=== PATIENT | female | born 1990 | race Caucasian/White ===

== ENCOUNTER 2017-10-02 10:39 | Emergency (ER) | payer MEDICAID ==
--- NOTE | 2017-10-02 11:52 | PD ---
HPI Chief Complaint back pain on L side Date Seen: Oct 02, 2017 Time Seen: 11:45 Travel History International Travel<30 Days: No Contact w/Intl Traveler<30Days: No Known Affected Area: No History of Present Illness HPI 26y/o G1 @ 35.0wks. She has PNC wtih Dr. Tao. She presents to triage with c/o excrutiating L sided back back since 6am. She states that it radiates down to her hip. She denies fever, dysuria, or hematuria. She also reports some increase swelling to her LEs and pressure in the vagina. No LOF, VB, ctx. ++FM. PNC is complicated by anemia (on oral iron supplementation). Weeks Gestation: 35 Para: 0 : 1 Last Menstrual Period: Oct 02, 2017 History Past Medical History Narrative Medical anemia Obstetric History Obstetric History G1. current Past Surgical History Surgical History: No Previous Surgery Family History Family History: Negative Social History Alcohol Use: No Tobacco Use: No Substance Abuse: No Allergies-Medications Comments NKDA Narrative Medication PNV, iron Review of Systems Except as stated in HPI: all other systems reviewed are Neg Physical Exam Narrative General: well developed, well nourished, no acute distress HEENT: normocephalic atraumatic, extraocular movements intact, neck supple Abdomen: soft, gravid, nontender, nondistended Back: +L CVA tenderness Extremities: full range of motion, trace edema Skin: normal coloration, no rashes, no suspicious skin lesions noted Neurologic: cranial nerves 2-12 grossly intact, normal muscle tone, normal gait Psychiatric: normal mood and affect, appropriate FHTs: 145, moderate variability, mild variables, non-reactive [place]: irritable Data Data Vital Signs Reviewed: Yes Orders Orders Vital Signs (Adult) .ON ADMISSION (10/02/17 11:44) ^ Labor Status (10/02/17 11:44) Urinalysis - C+S If Indicated (10/02/17 11:44) ^ Non Stress Test (10/02/17 11:44) ^ Hydration (10/02/17 11:44) MDM Plan 26y/o G1 @ 35.0wks with 1. IUP -- FHTS with moderate variability but non-reactive and +mild variables --> BPP/ REUBEN ordered -- toco with rippling --> IVF bolus 2. flank pain -- diff includes pyelo (unlikely given afebrile), nephrolithiasis, muscle spasm -- UA sent Update: 13:45 time Pts UA was negative for blood, or UTI. MSK tx given with flexiril Rx. BPP was 8/8 with REUBEN 14. Strict precautions/kick counts reviewed. Stable for d/c home. Has f/u PNV with Dr. Tao on 10/14. Diagnosis Diagnosis: Primary Impression: 35 weeks gestation of Additional Impressions: Left flank pain Non-reactive NST (non-stress test) Verito Frank MD Oct 02, 2017 11:52
[2017-10-02 12:21] LABS: BLOOD, URINE NEG (NEG); COMMENT (UR) CULT NOT INDICATED; CULTURE IF INDICATED CULT NOT INDICATED; GLUCOSE,URINE NEG (NEG); KETONE, URINE NEG (NEG); MUCUS URINE FEW /lpf (OCC); NITRITE,URINE NEG (NEG); PH, URINE 6.5 (5.0-8.5); SQUAMOUS EPITHELIAL CELL URINE 1 /hpf (0-5); URINE COLOR YELLOW (YELLW/STRAW)
== END 2017-10-02 14:30 | disposition home or self-care (01) ==
LOC: HOBED 10:39
DX: O26.893 Other specified pregnancy related conditions, third trimester (principal); R10.9 Unspecified abdominal pain; Z3A.35 35 weeks gestation of pregnancy
CPT/HCPCS: 59025; 76816; 76819; 81001; 96360

== ENCOUNTER 2017-10-29 11:42 | Inpatient (IN) | payer MEDICAID ==
[~2017-10-29] VITALS: Ht 152.4 cm; Wt 84.0 kg
[2017-10-29] VITALS (31 sets, daily range): BP systolic 119–157; BP diastolic 61–80; PULSE 73–92; RESP 16–18; TEMP 97.9–98.2; O2SAT 96–100
[2017-10-29] MEDS ORDERED: LACTATED RINGER'S 1000 ML INJ 1,000 ML IV PRN (12:32)
[2017-10-29] MEDS ORDERED: LIDOCAINE HCL 1% 50 ML VIAL I-DERMAL PRN (12:45)
[2017-10-29] MEDS ORDERED: OXYTOCIN 30 UNITS-500ML PREMIX 500 ML IV ONE (12:45)
[2017-10-29] MEDS ORDERED: CITRIC ACID-SODIUM CITRATE LIQ 30 ML UDC PO SCH (12:45)
[2017-10-29] MEDS ORDERED: LIDOCAINE HCL 1% 50 ML VIAL INFIL PRN (12:45)
[2017-10-29] MEDS ORDERED: MINERAL OIL 10 ML VIAL TOPICAL PRN (12:45)
[2017-10-29] MEDS ORDERED: SODIUM CHLORID 0.9% 500 ML INJ 500 ML IV PRN (12:45)
[2017-10-29] MEDS ORDERED: SODIUM CHLOR 0.9% 1000 ML INJ 1,000 ML IV PRN (12:52)
[2017-10-29 12:54] LABS: AUTOMATED NEUTROPHIL # 7.9 TH/MM3 (1.8-7.7); BASOPHIL # 0.1 TH/MM3 (0-0.2); BASOPHIL % 0.5 % (0.0-2.0); EOSINOPHIL # 0.1 TH/MM3 (0-0.4); EOSINOPHIL % 0.7 % (0.0-4.0); HEMATOCRIT 33.4 % (35.0-46.0); HEMOGLOBIN 10.8 GM/DL (11.6-15.3); LYMPH % 19.4 % (9.0-44.0); LYMPHOCYTE # 2.1 TH/MM3 (1.0-4.8); MEAN CELL VOLUME 78.9 FL (80.0-100.0); MEAN CORPUSCULAR HEMOGLOBIN 25.4 PG (27.0-34.0); MEAN CORPUSCULAR HGB CONC 32.2 % (32.0-36.0); MEAN PLATELET VOLUME 11.1 FL (7.0-11.0); MONO % 5.4 % (0.0-8.0); MONOCYTE # 0.6 TH/MM3 (0-0.9); PLATELET COUNT 164 TH/MM3 (150-450); RED BLOOD COUNT 4.24 MIL/MM3 (4.00-5.30); RED CELL DISTRIBUTION WIDTH 20.7 % (11.6-17.2); WHITE BLOOD COUNT 10.6 TH/MM3 (4.0-11.0)
[2017-10-29] MEDS ORDERED: DINOPROSTONE 10 MG VAG INSERT VAGINAL ONE (13:00)
[2017-10-29] MEDS: LACTATED RINGER'S 1000 ML INJ 1,000 ML IV SCH ×2 (13:00→18:10)
--- NOTE | 2017-10-29 13:01 | HHI.HP ---
HPI Chief Complaint pre-eclampsia Travel History International Travel<30 Days: No Contact w/Intl Traveler<30Days: No Known Affected Area: No History of Present Illness HPI pt is a 27 yo G1 with iup at 38w6d who was seen in the office today for routine ob visit. Her BP was noted to be elevated from baseline of 100/60 to 132/80, 2+ proteinuria. On ROS, pt with Headaches, RUQ pain, increased BLE edema. She denies any blurry vision or spotting. On arrival to L&D her BP is 144/79. She endorses good movement; irreg contractions. No VB/LOF. Weeks Gestation: 38 Para: 0 : 1 Last Menstrual Period: Jan 30, 2017 History Past Medical History Narrative Medical pcos and anemia Obstetric History Obstetric History G1 Past Surgical History Surgical History: No Previous Surgery Family History Family History: Negative Social History Alcohol Use: No Tobacco Use: No Substance Abuse: No Allergies-Medications (Allergen,Severity, Reaction): Coded Allergies: No Known Allergies (Unverified , 10/29/17) Review of Systems General / Constitutional: No: Fever, Weight Gain, Chills, Other Eyes: No: Diploplia, Blurred Vision, Visual changes, Pain, Photophobia HENT: Headaches, No: Vertigo, Lightheadedness Cardiovascular: Edema, No: Irregular Rhythm, Chest Pain or Discomfort, Palpitations, Tachycardia, Syncope, Varicosities, Cyanosis Respiratory: No: Cough, Short of Breath, Other Gastrointestinal: Abdominal Pain, No: Nausea, Vomiting, Diarrhea Genitourinary: No: Decreased Urinary Output, Oliguria Musculoskeletal: No: Limited ROM, Weakness, Cramping, Edema, Pain Skin: No Rash, No Itching, No Dryness, No Lumps, No Change in Pigmentation, No Change in Nails, No Alopecia, No Lesions Neurologic: No: Weakness, Dizziness, Syncope, Focal Abnormalities, Coordination Problem, Headache, Slurred Speech, Seizures Psychiatric: No: Depression, Suicidal Ideations, Homicidal Ideation Endocrine: No: Heat Intolerance, Cold Intolerance, Polydipsia, Polyuria, Other Physical Exam Narrative GENERAL: Well-nourished, well-developed patient. SKIN: Warm and dry. HEAD: Normocephalic and atraumatic. EYES: No scleral icterus. No injection or drainage. ENT: No nasal drainage noted. Mucous membranes pink. Airway patent. NECK: Supple, trachea midline. No JVD. CARDIOVASCULAR: Regular rate and rhythm without murmurs, gallops, or rubs. RESPIRATORY: Breath sounds equal bilaterally. No accessory muscle use. ABDOMEN/GI: Abdomen soft, bowel sounds present, no rebound, no guarding. RUQ pain with palpation Gravid to 38 weeks size Fundal Height: [-] GENITOURINARY: External Genitalia: intact and normal in appearance BUS glands: [-] Cervix1/th/-2, mid, soft Presentation:ceph Membranes: [intact Uterine Contractions:irreg FHT's: Category:I EXTREMITIES: No cyanosis. 2+ ble edema BACK: Nontender without obvious deformity. No CVA tenderness. NEUROLOGICAL: Awake and alert. Motor and sensory grossly within normal limits. Five out of 5 muscle strength in all muscle groups. Normal speech. Caprini VTE Risk Assessment Caprini VTE Risk Assessment: No/Low Risk (score <= 1) Caprini Risk Assessment Model Point Value = 1 Point Value = 2 Point Value = 3 Point Value = 5 Age 41-60 Minor surgery BMI > 25 kg/m2 Swollen legs Varicose veins or History of unexplained or recurrent spontaneous Oral contraceptives or hormone replacement Sepsis (< 1 month) Serious lung disease, including pneumonia (< 1 month) Abnormal pulmonary function Acute myocardial infarction Congestive heart failure (< 1 month) History of inflammatory bowel disease Medical patient at bed rest Age 61-74 Arthroscopic surgery Major open surgery (> 45 min) Laparoscopic surgery (> 45 min) Malignancy Confined to bed (> 72 hours) Immobilizing plaster cast Central venous access Age >= 75 History of VTE Family history of VTE Factor V Leiden Prothrombin [id number] Lupus anticoagulant Anticardiolipin antibodies Elevated serum homocysteine Heparin-induced thrombocytopenia Other congenital or acquired thrombophilia Stroke (< 1 month) Elective arthroplasty Hip, pelvis, or leg fracture Acute spinal cord injury (< 1 month) Prophylaxis Regimen Total Risk Factor Score Risk Level Prophylaxis Regimen 0-1 Low Early ambulation 2 Moderate Order ONE of the following: *Sequential Compression Device (SCD) *Heparin 5000 units SQ BID 3-4 Higher Order ONE of the following medications: *Heparin 5000 units SQ TID *Enoxaparin/Lovenox 40 mg SQ daily (WT < 150 kg, CrCl > 30 mL/min) *Enoxaparin/Lovenox 30 mg SQ daily (WT < 150 kg, CrCl > 10-29 mL/min) *Enoxaparin/Lovenox 30 mg SQ BID (WT < 150 kg, CrCl > 30 mL/min) AND/OR *Sequential Compression Device (SCD) 5 or more Highest Order ONE of the following medications: *Heparin 5000 units SQ TID (Preferred with Epidurals) *Enoxaparin/Lovenox 40 mg SQ daily (WT < 150 kg, CrCl > 30 mL/min) *Enoxaparin/Lovenox 30 mg SQ daily (WT < 150 kg, CrCl > 10-29 mL/min) *Enoxaparin/Lovenox 30 mg SQ BID (WT < 150 kg, CrCl > 30 mL/min) AND *Sequential Compression Device (SCD) Data Data Vital Signs Reviewed: Yes Orders Orders Admit To Inpatient (10/29/17 ) Vital Signs (Adult) .Per protocol (10/29/17 12:32) Heart (10/29/17 12:32) Amnioinfusion (10/29/17 12:32) Urinary Catheter Management .ONCE (10/29/17 12:32) Diet Liquid (10/29/17 Lunch) Lactated Ringer's 1000 Ml Inj (Lr 1000 M (10/29/17 12:32) Lactated Ringer's 1000 Ml Inj (Lr 1000 M (10/29/17 12:32) Sodium Chlorid 0.9% 500 Ml Inj (Ns 500 M (10/29/17 12:45) Sodium Chlor 0.9% 1000 Ml Inj (Ns 1000 M (10/29/17 12:52) Lidocaine 1% Inj (50 Ml) (Xylocaine 1% I (10/29/17 12:45) Citric Acid-Sodium Citrate Liq (Bicitra (10/29/17 12:45) Fentanyl Inj (Fentanyl Inj) (10/29/17 12:45) Fentanyl Inj (Fentanyl Inj) (10/29/17 12:45) Complete Blood Count With Diff (10/29/17 12:32) Hold Clot (10/29/17 12:32) Abo/Rh Blood Type (10/29/17 12:32) Urinalysis - C+S If Indicated (10/29/17 12:32) Drug Screen, Random Urine (10/29/17 12:32) Resp Oxygen Non Rebreathe Mask (10/29/17 ) ^ Epidural / Intrathecal Infus (10/29/17 12:32) Oxytocin 30 Units-500ml Premix (Pitocin (10/29/17 12:45) Lidocaine 1% Inj (50 Ml) (Xylocaine 1% I (10/29/17 12:45) Light Mineral Oil (Muri-Lube Oil) (10/29/17 12:45) ^ Labor Induction (10/29/17 12:32) ^ Vaginal Insert (10/29/17 12:32) ^ Vaginal Lavage (10/29/17 12:32) Heart (10/29/17 12:32) Dinoprostone Vag Insert (Cervidil Vag In (10/29/17 12:45) Comprehensive Metabolic Panel (10/29/17 12:32) Uric Acid (10/29/17 12:32) Protein Creat Ratio, Random Ur (10/29/17 12:32) Inpatient Certification (10/29/17 ) Specimen To Be Collected PRN (10/29/17 12:32) Specimen To Be Collected PRN (10/29/17 12:32) Group B Strep: Negative Assessment/Plan Problem List: (1) Pre-eclampsia ICD Codes: O14.90 - Unspecified pre-eclampsia, unspecified trimester Status: Acute Qualifiers: Qualified Codes: O14.93 - Unspecified pre-eclampsia, third trimester (2) Anemia ICD Codes: D64.9 - Anemia, unspecified Status: Chronic Qualifiers: Assessment and Plan 27 yo G1 with iup at 38w6d being admitted for iol for pre-eclampsia 1) IOL- aware can be a prolonged process. If blood work suggestive of severe pre-eclampsia and delivery indicated sooner, may need CD. If BP and labs stable , will start iol with cervidil. PIH labs, P:C ratio, serial BP. Will start magnesium for seizure prophylaxis. 2) Anemia- on iron bid. Last hgb 9.2, plt 146 on 10/10/17 3) GBS negative 4) Treated for influenza last week with tamiflu. 5) Fetus Cephalic, Male, Growth u/s 10/02/17 during ED visit EFW 30%ile Discharge Planning day 2 or 3 Grace Tao MD Oct 29, 2017 13:01
[2017-10-29 13:11] LABS: ALBUMIN 2.5 GM/DL (3.4-5.0); ALT (GPT) 29 U/L (10-53); AST (GOT) 26 U/L (15-37); BICARBONATE 21.7 MEQ/L (21.0-32.0); BLOOD UREA NITROGEN 7 MG/DL (7-18); CALCIUM 8.5 MG/DL (8.5-10.1); CHLORIDE 109 MEQ/L (98-107); CREATININE 0.59 MG/DL (0.50-1.00); GLOMERULAR FILTRATION RATE 122 ML/MIN (>89); GLUCOSE,RANDOM 71 MG/DL (74-106); SODIUM (NA) 140 MEQ/L (136-145)
[2017-10-29 13:14] LABS: ALKALINE PHOSPHATASE 228 U/L (45-117); TOTAL BILIRUBIN ADULT 0.3 MG/DL (0.2-1.0); TOTAL PROTEIN 6.7 GM/DL (6.4-8.2)
[2017-10-29] MEDS ORDERED: MAGNESIUM SULFATE 4 GM PREMIX 100 ML IV ONE (13:15)
[2017-10-29] MEDS ORDERED: CALCIUM GLUCONATE 10% 1 GM/10 ML VIAL IV PUSH PRN (13:15)
[2017-10-29 13:23] LABS: BACTERIA, URINE RARE /hpf; BILIRUBIN, URINE NEG (NEG); BLOOD, URINE TRACE (NEG); GLUCOSE,URINE NEG (NEG); KETONE, URINE NEG (NEG); MUCUS URINE MOD /lpf (OCC); NITRITE,URINE NEG (NEG); SQUAMOUS EPITHELIAL CELL URINE 21 /hpf (0-5); TRANSITIONAL EPI CELLS, URINE <1 /hpf; URINE COLOR YELLOW (YELLW/STRAW); URINE LEUKOCYTE ESTERASE TRACE (NEG)
[2017-10-29] MEDS: MAGNESIUM SULFATE 40 GM PREMIX 1,000 ML IV SCH (14:17)
[2017-10-29] MEDS ORDERED: SODIUM CHLORID 0.9% 500 ML INJ 500 ML IV ONE (18:30)
[2017-10-29 19:04] LABS: BASOPHIL # 0.1 TH/MM3 (0-0.2); BASOPHIL % 0.4 % (0.0-2.0); EOSINOPHIL % 0.2 % (0.0-4.0); HEMATOCRIT 33.2 % (35.0-46.0); HEMOGLOBIN 10.6 GM/DL (11.6-15.3); LYMPHOCYTE # 1.7 TH/MM3 (1.0-4.8); MEAN CELL VOLUME 79.2 FL (80.0-100.0); MEAN CORPUSCULAR HEMOGLOBIN 25.2 PG (27.0-34.0); MEAN CORPUSCULAR HGB CONC 31.8 % (32.0-36.0); MEAN PLATELET VOLUME 11.4 FL (7.0-11.0); MONO % 4.9 % (0.0-8.0); MONOCYTE # 0.8 TH/MM3 (0-0.9); NEUT % 83.5 % (16.0-70.0); PLATELET COUNT 193 TH/MM3 (150-450); RED BLOOD COUNT 4.19 MIL/MM3 (4.00-5.30); WHITE BLOOD COUNT 15.6 TH/MM3 (4.0-11.0)
[2017-10-29 19:26] LABS: BICARBONATE 19.1 MEQ/L (21.0-32.0); CALCIUM 8.2 MG/DL (8.5-10.1); CREATININE 0.66 MG/DL (0.50-1.00); MAGNESIUM 5.7 MG/DL (1.5-2.5)
[2017-10-29] MEDS ORDERED: ONDANSETRON HCL 4 MG/2 ML VIAL ONE (23:59)
[2017-10-30] VITALS (62 sets, daily range): BP systolic 112–159; BP diastolic 44–100; PULSE 69–111; RESP 15–20; TEMP 97.6–98.2; O2SAT 98–100
[2017-10-30] MEDS ORDERED: MISOPROSTOL 25 MCG TAB VAGINAL ONE (01:30)
[2017-10-30] MEDS ORDERED: ONDANSETRON HCL 4 MG/2 ML VIAL IV PUSH PRN (01:30)
[2017-10-30] MEDS ORDERED: LIDOCAINE 2% JELLY 30 ML TUBE TOPICAL PRN (03:30)
[2017-10-30] MEDS ORDERED: LIDOCAINE 2% JELLY 5 ML TUBE TOPICAL PRN (03:30)
[2017-10-30 05:57] LABS: HEMATOCRIT 34.8 % (35.0-46.0); HEMOGLOBIN 10.9 GM/DL (11.6-15.3); MEAN CELL VOLUME 80.5 FL (80.0-100.0); MEAN CORPUSCULAR HEMOGLOBIN 25.3 PG (27.0-34.0); MEAN CORPUSCULAR HGB CONC 31.4 % (32.0-36.0); MEAN PLATELET VOLUME 10.8 FL (7.0-11.0); PLATELET COUNT 201 TH/MM3 (150-450); RED BLOOD COUNT 4.32 MIL/MM3 (4.00-5.30); RED CELL DISTRIBUTION WIDTH 21.2 % (11.6-17.2); WHITE BLOOD COUNT 17.2 TH/MM3 (4.0-11.0)
[2017-10-30 06:23] LABS: ALBUMIN 2.4 GM/DL (3.4-5.0); ALT (GPT) 26 U/L (10-53); AST (GOT) 28 U/L (15-37); BICARBONATE 16.5 MEQ/L (21.0-32.0); BLOOD UREA NITROGEN 7 MG/DL (7-18); CALCIUM 8.2 MG/DL (8.5-10.1); CHLORIDE 101 MEQ/L (98-107); CREATININE 0.98 MG/DL (0.50-1.00); GLOMERULAR FILTRATION RATE 68 ML/MIN (>89); GLUCOSE,RANDOM 91 MG/DL (74-106); SODIUM (NA) 134 MEQ/L (136-145)
[2017-10-30 06:26] LABS: ALKALINE PHOSPHATASE 241 U/L (45-117); TOTAL BILIRUBIN ADULT 0.5 MG/DL (0.2-1.0)
--- NOTE | 2017-10-30 08:27 | HHI.PR ---
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 O: Exam: Deferred FHTs: Baseline 115, moderate variability, accelerations present, no decelerations TOCO: Contractions every 6-8 minutes A/P 27-year-old G1 at 39 weeks and 0 days admitted for induction of labor secondary to preeclampsia severe features 1. : Category 1 tracing -Continuous monitoring, GBS negative, cephalic on admission, EFW 7.5-8 pounds. no recent US EFW, only was 10/02 = 2315g (30%), ant placenta. - Male fetus 2. Induction of labor: Secondary to #3, status post Cervidil x1, PV miso 1 at 3 AM, begin Pitocin for augmentation, discussed - SROM clear fluid at 2 AM - Desires epidural 3. Preeclampsia with severe features: Based on right upper quadrant pain and new elevated blood pressures, HELLP labs within normal limits 3 during admission, P:C 1.15. Blood pressures mostly mild range, no severe's Urine output via [place] overall normal, oliguric for the past 3 hours, patient poor oral intake, fluid 125cc/hr, creatinine has slowly increased since admission but still WNL, likely due to dehydration, will bolus 1 L. Recheck labs as below - Continue magnesium 2 g an hour, mag level overnight within therapeutic range. No signs of mag toxicity. - Repeat HELLP labs and mag level 1600 today Robert Singleton MD Oct 30, 2017 08:27
[2017-10-30] MEDS ORDERED: OXYTOCIN 30 UNITS-500ML PREMIX 500 ML IV SCH (08:45)
[2017-10-30] MEDS ORDERED: LACTATED RINGER'S 1000 ML INJ 1,000 ML IV ONE (08:45)
[2017-10-30] MEDS ORDERED: fentaNYL 2MCG-BUPIV 0.125% INJ 100 ML ONE (09:24)
[2017-10-30] MEDS ORDERED: DO NOT ADMINISTER ANTICOAGULANTS PRN (10:00)
[2017-10-30] MEDS ORDERED: ePHEDrine/NS 25 MG/5 ML SYRINGE IV PUSH PRN (10:00)
[2017-10-30] MEDS ORDERED: fentaNYL 2MCG-BUPIV 0.125% 100 ML EPIDURAL SCH (10:00)
[2017-10-30] MEDS ORDERED: NO SYSTEM NARCOTICS PRN (10:00)
[2017-10-30] MEDS: MAGNESIUM SULFATE 40 GM PREMIX 1,000 ML IV SCH (10:27)
[2017-10-30] MEDS: LACTATED RINGER'S 1000 ML INJ 1,000 ML IV SCH (15:12)
--- NOTE | 2017-10-30 15:37 | HHI.PR ---
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 O: Exam: fore bag present, AROM this check, clear fluid. cervix 3.5 / 70/-3. FHTs: Baseline 110, moderate variability, accelerations present, no decelerations TOCO: Contractions every 6-8 minutes, MVUs inadequate DTRS 0, no clonus, 2+ pitting edema bilaterally. A/P 27-year-old G1 at 39 weeks and 0 days admitted for induction of labor secondary to preeclampsia severe features 1. : Category 1 tracing -Continuous monitoring, GBS negative, cephalic on admission, EFW 7.5-8 pounds. no recent US EFW, only was 10/02 = 2315g (30%), ant placenta. - Male fetus 2. Induction of labor: Secondary to #3, status post Cervidil x1, PV miso 1 at 3 AM, Continue to titrate pit. - SROM at 2 AM (+amnisure) , however believe either false pos for had forebag, AROM this check. IUPC replaced now. - Comfortable w/ epidural 3. Preeclampsia with severe features: Based on right upper quadrant pain and new elevated blood pressures, HELLP labs within normal limits 3 during admission, P:C 1.15. Blood pressures mostly mild range, no severe's Urine output via machado at time oliguric, creatinine has slowly increased since admission but still WNL. + Fluid balance. Recheck labs as below - Continue magnesium 2 g an hour, mag level overnight within therapeutic range. No signs of mag toxicity. - Repeat HELLP labs and mag level 1600 today Robert Singleton MD Oct 30, 2017 15:37
[2017-10-30 16:34] LABS: AUTOMATED NEUTROPHIL # 11.9 TH/MM3 (1.8-7.7); BASOPHIL # 0.1 TH/MM3 (0-0.2); BASOPHIL % 0.4 % (0.0-2.0); EOSINOPHIL % 0.2 % (0.0-4.0); HEMATOCRIT 33.8 % (35.0-46.0); HEMOGLOBIN 10.6 GM/DL (11.6-15.3); LYMPH % 10.9 % (9.0-44.0); LYMPHOCYTE # 1.6 TH/MM3 (1.0-4.8); MEAN CELL VOLUME 79.8 FL (80.0-100.0); MEAN CORPUSCULAR HEMOGLOBIN 24.9 PG (27.0-34.0); MEAN CORPUSCULAR HGB CONC 31.3 % (32.0-36.0); MEAN PLATELET VOLUME 10.7 FL (7.0-11.0); MONO % 7.7 % (0.0-8.0); MONOCYTE # 1.1 TH/MM3 (0-0.9); NEUT % 80.8 % (16.0-70.0); PLATELET COUNT 194 TH/MM3 (150-450); RED BLOOD COUNT 4.24 MIL/MM3 (4.00-5.30); RED CELL DISTRIBUTION WIDTH 20.9 % (11.6-17.2); WHITE BLOOD COUNT 14.7 TH/MM3 (4.0-11.0)
[2017-10-30 16:49] LABS: ALBUMIN 2.4 GM/DL (3.4-5.0); ALT (GPT) 20 U/L (10-53); AST (GOT) 25 U/L (15-37); BLOOD UREA NITROGEN 9 MG/DL (7-18); CALCIUM 8.7 MG/DL (8.5-10.1); CHLORIDE 100 MEQ/L (98-107); GLUCOSE,RANDOM 79 MG/DL (74-106); SODIUM (NA) 133 MEQ/L (136-145)
[2017-10-30 16:51] LABS: ALKALINE PHOSPHATASE 232 U/L (45-117); MAGNESIUM 11.3 MG/DL (1.5-2.5); TOTAL BILIRUBIN ADULT 0.5 MG/DL (0.2-1.0); TOTAL PROTEIN 6.8 GM/DL (6.4-8.2)
[2017-10-30] MEDS ORDERED: CALCIUM GLUCONATE 10% 1 GM/10 ML VIAL IV PUSH PRN (17:45)
[2017-10-30] MEDS ORDERED: SODIUM CHLORIDE 0.9% FLUSH 10 ML FLUSH IV FLUSH PRN (17:45)
[2017-10-30] MEDS ORDERED: MAGNESIUM SULFATE 40 GM PREMIX 1,000 ML IV SCH (18:00)
[2017-10-30] MEDS ORDERED: SODIUM CHLORIDE 0.9% FLUSH 10 ML FLUSH IV FLUSH SCH (21:00)
[2017-10-30] MEDS ORDERED: LIDOCAINE 2%/EPINEPHrine PF 1:200,000 20ML SDV ONE (22:16)
[2017-10-30] MEDS ORDERED: BUPIVACAINE HCL PF 0.25% 10 ML VIAL ONE (22:16)
[2017-10-30 22:55] LABS: AUTOMATED NEUTROPHIL # 12.6 TH/MM3 (1.8-7.7); BASOPHIL % 0.2 % (0.0-2.0); EOSINOPHIL % 0.1 % (0.0-4.0); LYMPH % 8.8 % (9.0-44.0); LYMPHOCYTE # 1.3 TH/MM3 (1.0-4.8); MEAN CORPUSCULAR HEMOGLOBIN 25.2 PG (27.0-34.0); MEAN CORPUSCULAR HGB CONC 31.6 % (32.0-36.0); MEAN PLATELET VOLUME 10.6 FL (7.0-11.0); MONO % 7.6 % (0.0-8.0); MONOCYTE # 1.2 TH/MM3 (0-0.9); NEUT % 83.3 % (16.0-70.0); PLATELET COUNT 184 TH/MM3 (150-450); RED BLOOD COUNT 4.38 MIL/MM3 (4.00-5.30); RED CELL DISTRIBUTION WIDTH 21.5 % (11.6-17.2); WHITE BLOOD COUNT 15.2 TH/MM3 (4.0-11.0)
[2017-10-30 23:23] LABS: ALBUMIN 2.3 GM/DL (3.4-5.0); ALT (GPT) 21 U/L (10-53); AST (GOT) 30 U/L (15-37); BICARBONATE 16.2 MEQ/L (21.0-32.0); BLOOD UREA NITROGEN 10 MG/DL (7-18); CALCIUM 8.5 MG/DL (8.5-10.1); CHLORIDE 100 MEQ/L (98-107); CREATININE 1.29 MG/DL (0.50-1.00); GLUCOSE,RANDOM 88 MG/DL (74-106); SODIUM (NA) 132 MEQ/L (136-145)
[2017-10-30 23:25] LABS: ALKALINE PHOSPHATASE 230 U/L (45-117); MAGNESIUM 9.9 MG/DL (1.5-2.5); TOTAL BILIRUBIN ADULT 0.5 MG/DL (0.2-1.0); TOTAL PROTEIN 6.9 GM/DL (6.4-8.2)
[2017-10-31] VITALS (19 sets, daily range): BP systolic 110–156; BP diastolic 55–89; PULSE 69–86; RESP 15–22; TEMP 97.8–99.1; O2SAT 98–100
[2017-10-31] MEDS ORDERED: AZITHROMYCIN INJ 500 MG in SODIUM CHLOR 0.9% 250 ML INJ 250 ML IV STA (00:17)
[2017-10-31] MEDS ORDERED: MORPHINE SULFATE PF 5 MG/10 ML VIAL ONE (00:26)
[2017-10-31] MEDS: LACTATED RINGER'S 1000 ML INJ 1,000 ML IV SCH ×4 (00:30→20:42)
[2017-10-31] MEDS ORDERED: EPIDURAL-DIPHENHYDRAMINE HCL 50 MG/ML VIAL IV PUSH PRN (00:50)
[2017-10-31] MEDS ORDERED: EPIDURAL-DO NOT ADMINISTER ANTICOAGULANTS PRN (00:50)
[2017-10-31] MEDS ORDERED: EPIDURAL-DIPHENHYDRAMINE HCL 50 MG CAP PO PRN (00:50)
[2017-10-31] MEDS ORDERED: EPIDURAL-NALOXONE HCL 0.4 MG/ML AMP IV PUSH PRN (00:50)
[2017-10-31] MEDS ORDERED: EPIDURAL-NO SYSTEMIC NARCOTICS PRN (00:50)
[2017-10-31] MEDS ORDERED: CARBOPROST TROMETHAMINE 250 MCG/ML VIAL ONE (00:56)
[2017-10-31] MEDS ORDERED: ACETAMINOPHEN 1000 MG/100 ML 100 ML IV ONE ×2 (00:56→01:45)
[2017-10-31] MEDS ORDERED: ceFAZolin 2 GM PREMIX 50 ML IV SCH (01:30)
[2017-10-31] MEDS ORDERED: OXYTOCIN 30 UNITS-500ML PREMIX 500 ML IV ONE (01:45)
[2017-10-31] MEDS ORDERED: DOCUSATE SODIUM 50 MG/SENNA 8.6 MG TAB PO PRN (01:45)
[2017-10-31] MEDS ORDERED: SIMETHICONE 80 MG CHEWABLE TAB PO PRN (01:45)
[2017-10-31] MEDS ORDERED: ACETAMINOPHEN 325 MG TAB PO PRN ×2 (01:45→17:30)
[2017-10-31] MEDS ORDERED: ONDANSETRON HCL 4 MG/2 ML VIAL IV PUSH PRN (01:45)
[2017-10-31] MEDS ORDERED: ZOLPIDEM TARTRATE 5 MG TAB PO PRN (01:45)
[2017-10-31] MEDS ORDERED: SODIUM CHLORIDE 0.9% FLUSH 10 ML FLUSH IV FLUSH PRN (01:45)
--- NOTE | 2017-10-31 01:53 | PD.OB.DELI ---
Procedure Note Section Procedure Pre Op Diagnosis: (1) Anemia (2) Pre-eclampsia Post Op Diagnosis: (1) delivery delivered (2) Anemia (3) Pre-eclampsia Performed by Robert Singleton Procedure: Primary Low Transverse Sec Indication for delivery: Other (worsening maternal status, maternal request) Previous condition: None Informed consent obtained: For anesthesia Confirmed correct: Patient, Procedure, Site, Time-out taken Anesthesia: Epidural Medication prior to procedure: As documented in eMAR, Antibiotics, IV (2g ancef , 500mg IV azithromycin), Magnesium Sulfate Monitoring during procedure: Blood pressure monitoring, Pulse oximetry Urinary catheter: Inserted using sterile technique, ml urine output (75, clear , concentrated) Sterile preparation: Duraprep, In usual fashion Position: Supine with wedge to left side Operative Features Skin Incision: Pfannenstiel Uterine Incision: Low transverse w/knife / blunt ext Membranes Ruptured: Artificially Presentation: Other (acynclitic) Delivery date: Oct 31, 2017 Delivery time: 01:00 Delivery of infant: Uneventful : Male, Single One Minute : 9 Five Minute : 9 Weight: 3040g Status of : Viable, Cord blood, Nursery present Placenta delivered: Intact, Sent to pathology Medications: Antibiotics (as above), Oxytocin (after placenta ) Estimated blood loss: 600 Procedure tolerated: Well Maternal Complications: Other (none) Maternal Condition: Stable Baby Complications: Other (none) Procedure in detail see dictated note, # [id number] Robert Singleton MD Oct 31, 2017 01:53
[2017-10-31] MEDS ORDERED: CITRIC ACID-SODIUM CITRATE LIQ 30 ML UDC PO SCH (02:00)
[2017-10-31] MEDS ORDERED: OXYTOCIN 30 UNITS-500ML PREMIX 500 ML ONE (02:44)
--- NOTE | 2017-10-31 07:19 | MP ---
cc: GILBERT NUNEZ MD DATE OF SURGERY 10/31/2017 DATE OF 1990 PREOPERATIVE DIAGNOSES 1. Intrauterine at 38 weeks and 6 days. 2. Preeclampsia with severe features. 3. Worsening maternal status. 4. Maternal request for section. POSTOPERATIVE DIAGNOSIS 1. Intrauterine at 38 weeks and 6 days. 2. Preeclampsia with severe features. 3. Worsening maternal status. 4. Maternal request for section. 5. Status post delivery via . SURGEON Dr. 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 FINDINGS 1. Viable female infant at 0100, 's 9 and 9, normal Anatomy. Loose nuchal x1, asynclitic presentation. 2. Intact placenta, three vessel cord at 0101. 3. Normal intra-abdominal anatomy free of adhesions, normal uterus, bilateral fallopian tubes and ovaries bilaterally. ESTIMATED BLOOD LOSS 600 cc FLUID REPLACEMENT 600 cc of lactated Ringer's and Pitocin, mag held pre op / intra op due to supra theraputic level URINE 75 cc clear and concentrated via [place] ANTIBIOTICS 2 grams Ancef and 500 mg IV Azithromycin prior to the procedure. SPECIMEN Placenta to pathology ANESTHESIA Epidural COMPLICATIONS None DVT PROPHYLAXIS Sequential compression devices throughout the case. COUNTS Correct times two TIME OUT Done, correct. DISPOSITION: Stable to PACU. INDICATIONS: This patient is a 27 year-old G1, now P1-0-0-1 who presented for induction of labor due to new onset preeclampsia with severe features. She was started on magnesium for seizure prophylaxis. She had a Cervidil and then one dose of misoprostol for cervical ripening. She had spontaneous ruptured which was questionable at 2:00 a.m., then the following afternoona fore bag was ruptured, she was started on Pitocin. She had inadequate MVU's during her labor course. Her cervix was 5, 90, -3 at the time of the called . She had HELLP labs that were serially trended. Her creatinine continued to worsen and her urine output had been oliguric mostly throughout her labor course. Given that she was remote from delivery and worsening maternal status and patient desiring a was called. DESCRIPTION OF PROCEDURE The patient was taken to the operating room, placed in the supine position with a left lateral tilt. Anesthesia was dosed and found to be adequate. The abdomen was prepped and draped in a sterile fashion. A Pfannenstiel incision was made with a scalpel down to the fascia which was extended bilaterally with Salazar scissors and dissected off the underlying rectus superiorly and inferiorly with Salazar's. The peritoneal cavity was entered digitally and the rectus retracted laterally. A bladder blade was inserted. A bladder flap was developed with Metzenbaum's. A curvilinear low transverse incision was made and extended in a cephalad caudal fashion. Physician's hand was inserted into the uterus and the baby's head was appreciated to be asynclitic. It was elevated to the hysterotomy and with fundal pressure the head was delivered. A loose nuchal cord was reduced and with gentle downward and upward guidance, the upper and lower extremities were delivered followed by the torso and lower extremities with ease. The had spontaneous cry. The cord was cut after delayed clamping. The placenta was delivered with uterine massage and cord traction. The uterus was exteriorized and cleared free of clot , debris, and membranes, closed with a single running locking layer of 0 Vicryl from left to right. There was some oozing at the left aspect of the hysterotomy. A single [id number] of 0 Vicryl was applied and hemostasis was achieved. The uterus was returned to the abdomen. The abdomen was irrigated and the surgical sites were hemostatic. The fascia was closed from left to right with running unclocked 0 Vicryl. The subcutaneous tissue was closed with running 2-0 Monocryl and the skin was closed in a subcuticular fashion with 3-0 Monocryl. A dressing was applied and the patient was transferred to PACU in stable condition. MD MODESTO Cunningham/NYA /1:36 AM /6:28 AM MANDEEP
--- NOTE | 2017-10-31 08:05 | HHI.OB ---
Subjective Post Operative Day: 0 Remarks s/p primary ltcd for pre-eclampsia with worsening labs, failed iol. No RICKS or blurry vision. Abd tenderness as expected. Min bleeding Objective Vitals/I&O Vital Signs Date Time Temp Pulse Resp B/P (MAP) Pulse Ox O2 Delivery O2 Flow Rate FiO2 10/31/17 07:49 97.9 10/31/17 04:00 98 10/31/17 03:54 18 10/31/17 03:53 76 128/80 (96) 10/31/17 02:50 99.1 10/31/17 02:45 76 22 127/61 (83) 10/31/17 02:45 99 10/31/17 02:31 73 19 113/57 (75) 100 10/31/17 02:19 79 21 110/55 (73) 99 10/31/17 02:02 98.2 84 15 111/59 (76) 100 10/31/17 00:33 97.9 10/31/17 00:15 16 10/31/17 00:00 86 150/73 (98) 10/30/17 23:00 82 131/65 (87) 10/30/17 22:15 15 10/30/17 22:10 86 99 10/30/17 22:07 98.0 10/30/17 22:00 79 136/75 (95) 10/30/17 21:15 16 10/30/17 21:00 84 10/30/17 21:00 83 142/82 (102) 100 10/30/17 20:06 100 10/30/17 20:06 16 10/30/17 20:00 82 144/71 (95) 10/30/17 19:00 88 149/77 (101) 10/30/17 18:56 100 10/30/17 18:00 18 10/30/17 18:00 97.6 10/30/17 18:00 79 150/86 (107) 10/30/17 17:00 76 137/80 (99) 10/30/17 17:00 18 10/30/17 16:06 97.6 10/30/17 16:05 84 100 10/30/17 16:00 82 147/83 (104) 10/30/17 16:00 18 10/30/17 15:02 99 10/30/17 15:00 77 18 125/75 (92) 10/30/17 14:31 71 122/71 (88) 10/30/17 14:00 97.6 10/30/17 14:00 18 10/30/17 14:00 86 153/82 (105) 10/30/17 14:00 84 100 10/30/17 13:30 78 124/69 (87) 10/30/17 13:00 18 10/30/17 13:00 80 132/70 (90) 10/30/17 12:53 80 134/78 (96) 10/30/17 12:50 76 98 10/30/17 12:50 98.0 10/30/17 12:45 74 99 10/30/17 12:00 18 10/30/17 12:00 69 113/49 (70) 10/30/17 11:30 70 117/56 (76) 10/30/17 11:00 86 138/76 (96) 10/30/17 11:00 18 10/30/17 10:58 100 10/30/17 10:31 87 139/73 (95) 10/30/17 10:26 18 10/30/17 10:00 93 131/80 (97) 10/30/17 09:45 97.6 10/30/17 09:40 84 10/30/17 09:40 85 116/49 (71) 100 10/30/17 09:35 89 112/44 (66) 100 10/30/17 09:35 89 10/30/17 09:30 83 10/30/17 09:30 86 117/48 (71) 100 10/30/17 09:25 87 118/45 (69) 99 10/30/17 09:25 86 10/30/17 09:20 92 124/47 (72) 99 10/30/17 09:20 91 10/30/17 09:15 94 10/30/17 09:15 96 134/61 (85) 99 10/30/17 09:15 18 10/30/17 09:10 95 141/68 (92) 99 10/30/17 09:10 97 10/30/17 09:05 111 152/78 (102) 100 10/30/17 09:05 99 10/30/17 09:00 109 143/100 (114) 10/30/17 08:46 87 149/67 (94) 10/30/17 08:05 100 10/30/17 08:04 86 152/75 (100) Result Diagram: 10/30/17221910/30/172219 Objective Remarks GENERAL: Well-nourished, well-developed patient. CARDIOVASCULAR: Regular rate and rhythm without murmurs, gallops, or rubs. RESPIRATORY: Breath sounds equal bilaterally. No accessory muscle use. ABDOMEN/GI: Abdomen soft, non-tender, bowel sounds present. Incision: dressing min blood, dry and intact. Fundus: Firm, non-tender at umbilicus. GENITOURINARY: Light to moderate bleeding. EXTREMITIES: No cyanosis or edema, non-tender, without signs of DVT. no clonus. Reflexed 2+ Medications and IVs Current Medications Medications (Trade) Dose Ordered Sig/Chang Route Start Time Stop Time Status Last Admin (Xylocaine 1% Inj (50 ml)) 0.1 ml UNSCH X1 PRN I-DERMAL 10/29/17 12:45 11/01/17 12:44 (Xylocaine 1% Inj (50 ml)) 10 ml UNSCH X1 PRN INFIL 10/29/17 12:45 10/31/17 12:44 Miscellaneous Information No systemic narcotics to be given except... UNSCH PRN .XX 10/30/17 10:00 10/31/17 09:59 Miscellaneous Information DO NOT ADMINISTER ANY ANTICOAGUL... UNSCH PRN .XX 10/30/17 10:00 10/31/17 09:59 (ePHEDrine/NS 25 MG/5 ML SYR) 10 mg UNSCH PRN IV PUSH 10/30/17 10:00 10/31/17 09:59 Cefazolin Sodium/ Dextrose 50 ml @ 100 mls/hr SENIOR INSPECTOR IV 10/31/17 01:30 11/04/17 01:29 10/31/17 00:30 (Bicitra Liq) 30 ml SENIOR INSPECTOR PO 10/31/17 02:00 11/04/17 01:59 Lactated Ringer's 1,000 ml @ 100 mls/hr Q10H IV 10/31/17 06:39 11/01/17 02:38 Oxytocin 500 ml @ 100 mls/hr UNSCH X1 PRN IV 10/31/17 11:45 11/01/17 11:44 (NS Flush) 2 ml BID IV FLUSH 10/31/17 09:00 (NS Flush) 2 ml UNSCH PRN IV FLUSH 10/31/17 01:45 (Mylicon Chew) 80 mg QID PRN PO 10/31/17 01:45 (Tylenol) 650 mg Q6H PRN PO 10/31/17 01:45 (Percocet 5-325 Mg) 1 tab Q4H PRN PO 10/31/17 01:45 (Percocet 5-325 Mg) 2 tab Q4H PRN PO 10/31/17 01:45 (Marsha-Colace) 2 tab Q12H PRN PO 10/31/17 01:45 (Ambien) 5 mg HS PRN PO 10/31/17 01:45 (M-M-R Ii Inj) 0.5 ml ONCE ONCE SQ 11/01/17 16:00 11/01/17 16:01 (Boostrix Inj) 0.5 ml ONCE ONCE IM 11/01/17 16:00 11/01/17 16:01 (Zofran Inj) 4 mg Q6H PRN IV PUSH 10/31/17 01:45 Miscellaneous Information NO SYSTEMIC NARCOTICS TO BE GIVEN FO... UNSCH PRN .XX 10/31/17 00:50 11/01/17 00:49 (Narcan Inj) 0.4 mg UNSCH PRN IV PUSH 10/31/17 00:50 11/01/17 00:49 (Benadryl Inj) 25 mg Q6H PRN IV PUSH 10/31/17 00:50 11/01/17 00:49 (Benadryl) 50 mg Q6H PRN PO 10/31/17 00:50 11/01/17 00:49 Miscellaneous Information ALL NURSING DEPARTMENTS UNSCH PRN .XX 10/31/17 00:50 11/01/17 00:49 Acetaminophen 100 ml @ 400 mls/hr Q8H IV 10/31/17 09:00 10/31/17 17:14 Assessment/Plan Problem List: (1) Pre-eclampsia ICD Codes: O14.90 - Unspecified pre-eclampsia, unspecified trimester Status: Acute Qualifiers: Qualified Codes: O14.93 - Unspecified pre-eclampsia, third trimester (2) Anemia ICD Codes: D64.9 - Anemia, unspecified Status: Chronic Qualifiers: Assessment and Plan 27 yo G1 s/p primary ltcd for failed iol and worsening pre-eclampsia 1) POD 0- cont routine supportive care 2) Pre-eclampsia w severe features- magnesium given intrapartum but stopped due to supratherapeutic. BP presently normal, good diuresis this am. Am labs pending. Will keep off of magnesium until labs resulted. Discharge Planning day 2 or 3 Grace Tao MD Oct 31, 2017 08:05
[2017-10-31 08:24] LABS: BASOPHIL % 0.1 % (0.0-2.0); HEMATOCRIT 27.5 % (35.0-46.0); HEMOGLOBIN 8.8 GM/DL (11.6-15.3); LYMPH % 4.2 % (9.0-44.0); MEAN CELL VOLUME 78.6 FL (80.0-100.0); MEAN CORPUSCULAR HEMOGLOBIN 25.1 PG (27.0-34.0); MEAN CORPUSCULAR HGB CONC 31.9 % (32.0-36.0); MEAN PLATELET VOLUME 10.3 FL (7.0-11.0); MONO % 5.1 % (0.0-8.0); MONOCYTE # 1.2 TH/MM3 (0-0.9); NEUT % 90.6 % (16.0-70.0); PLATELET COUNT 142 TH/MM3 (150-450); RED CELL DISTRIBUTION WIDTH 21.3 % (11.6-17.2); WHITE BLOOD COUNT 24.3 TH/MM3 (4.0-11.0)
[2017-10-31] MEDS: ACETAMINOPHEN 1000 MG/100 ML 100 ML IV SCH ×2 (09:00→17:00)
[2017-10-31] MEDS: SODIUM CHLORIDE 0.9% FLUSH 10 ML FLUSH IV FLUSH SCH (09:00)
[2017-10-31 09:02] LABS: ALBUMIN 1.8 GM/DL (3.4-5.0); ALKALINE PHOSPHATASE 189 U/L (45-117); ALT (GPT) 15 U/L (10-53); AST (GOT) 24 U/L (15-37); BICARBONATE 19.9 MEQ/L (21.0-32.0); BLOOD UREA NITROGEN 10 MG/DL (7-18); CALCIUM 8.2 MG/DL (8.5-10.1); CHLORIDE 103 MEQ/L (98-107); CREATININE 1.28 MG/DL (0.50-1.00); GLOMERULAR FILTRATION RATE 50 ML/MIN (>89); GLUCOSE,RANDOM 106 MG/DL (74-106); MAGNESIUM 6.9 MG/DL (1.5-2.5); SODIUM (NA) 134 MEQ/L (136-145); TOTAL BILIRUBIN ADULT 0.4 MG/DL (0.2-1.0); TOTAL PROTEIN 5.5 GM/DL (6.4-8.2)
[2017-10-31] MEDS ORDERED: OXYTOCIN 30 UNITS-500ML PREMIX 500 ML IV PRN (11:45)
[2017-10-31] MEDS: oxyCODONE/ACETAMINOPHEN 5 MG/325 MG TAB PO PRN ×2 (14:38→23:01)
[2017-10-31] MEDS: IBUPROFEN 800 MG TAB PO PRN ×2 (14:38→23:01)
[2017-10-31 19:35] LABS: AUTOMATED NEUTROPHIL # 20.7 TH/MM3 (1.8-7.7); BASOPHIL # 0.1 TH/MM3 (0-0.2); BASOPHIL % 0.3 % (0.0-2.0); HEMATOCRIT 27.7 % (35.0-46.0); HEMOGLOBIN 8.8 GM/DL (11.6-15.3); LYMPH % 8.2 % (9.0-44.0); MEAN CELL VOLUME 78.7 FL (80.0-100.0); MEAN CORPUSCULAR HEMOGLOBIN 25.1 PG (27.0-34.0); MEAN CORPUSCULAR HGB CONC 31.9 % (32.0-36.0); MEAN PLATELET VOLUME 10.5 FL (7.0-11.0); MONO % 5.2 % (0.0-8.0); MONOCYTE # 1.2 TH/MM3 (0-0.9); NEUT % 86.3 % (16.0-70.0); PLATELET COUNT 179 TH/MM3 (150-450); RED BLOOD COUNT 3.53 MIL/MM3 (4.00-5.30); RED CELL DISTRIBUTION WIDTH 21.5 % (11.6-17.2); WHITE BLOOD COUNT 23.9 TH/MM3 (4.0-11.0)
[2017-10-31 19:36] LABS: ALBUMIN 1.9 GM/DL (3.4-5.0); AST (GOT) 21 U/L (15-37); BLOOD UREA NITROGEN 13 MG/DL (7-18); CALCIUM 7.5 MG/DL (8.5-10.1); CHLORIDE 101 MEQ/L (98-107); CREATININE 1.23 MG/DL (0.50-1.00); GLOMERULAR FILTRATION RATE 52 ML/MIN (>89); GLUCOSE,RANDOM 78 MG/DL (74-106); SODIUM (NA) 134 MEQ/L (136-145)
[2017-10-31 19:38] LABS: ALT (GPT) 13 U/L (10-53)
[2017-10-31 19:40] LABS: ALKALINE PHOSPHATASE 190 U/L (45-117); TOTAL BILIRUBIN ADULT 0.4 MG/DL (0.2-1.0); TOTAL PROTEIN 5.8 GM/DL (6.4-8.2)
[2017-11-01] MEDS: oxyCODONE/ACETAMINOPHEN 5 MG/325 MG TAB PO PRN ×4 (05:53→22:38)
[2017-11-01 06:21] LABS: AUTOMATED NEUTROPHIL # 15.5 TH/MM3 (1.8-7.7); BASOPHIL % 0.2 % (0.0-2.0); EOSINOPHIL # 0.1 TH/MM3 (0-0.4); EOSINOPHIL % 0.7 % (0.0-4.0); HEMATOCRIT 27.4 % (35.0-46.0); HEMOGLOBIN 8.5 GM/DL (11.6-15.3); LYMPH % 8.8 % (9.0-44.0); LYMPHOCYTE # 1.6 TH/MM3 (1.0-4.8); MEAN CORPUSCULAR HEMOGLOBIN 24.7 PG (27.0-34.0); MEAN CORPUSCULAR HGB CONC 31.2 % (32.0-36.0); MEAN PLATELET VOLUME 9.5 FL (7.0-11.0); MONO % 5.7 % (0.0-8.0); NEUT % 84.6 % (16.0-70.0); PLATELET COUNT 168 TH/MM3 (150-450); RED BLOOD COUNT 3.46 MIL/MM3 (4.00-5.30); RED CELL DISTRIBUTION WIDTH 21.1 % (11.6-17.2); WHITE BLOOD COUNT 18.3 TH/MM3 (4.0-11.0)
[2017-11-01 06:47] LABS: ALBUMIN 1.8 GM/DL (3.4-5.0); ALT (GPT) 14 U/L (10-53); AST (GOT) 15 U/L (15-37); BICARBONATE 22.4 MEQ/L (21.0-32.0); BLOOD UREA NITROGEN 14 MG/DL (7-18); CHLORIDE 108 MEQ/L (98-107); CREATININE 0.93 MG/DL (0.50-1.00); GLOMERULAR FILTRATION RATE 72 ML/MIN (>89); GLUCOSE,RANDOM 71 MG/DL (74-106); SODIUM (NA) 139 MEQ/L (136-145)
[2017-11-01 06:49] LABS: ALKALINE PHOSPHATASE 178 U/L (45-117); TOTAL BILIRUBIN ADULT 0.3 MG/DL (0.2-1.0); TOTAL PROTEIN 5.5 GM/DL (6.4-8.2)
[2017-11-01 08:00] VITALS: BP_SYST 110; BP_SYST 130; BP_DIAS 77; PULSE 71; RESP 16; TEMP 97.8; O2SAT 97
--- NOTE | 2017-11-01 09:26 | HHI.OB ---
Subjective Post Operative Day: 1 Remarks doing well, voiding w/o difficulty. min vb. +flatus. no bm yet. no marquez/blurry vision or ruq pain Objective Vitals/I&O Vital Signs Date Time Temp Pulse Resp B/P (MAP) Pulse Ox O2 Delivery O2 Flow Rate FiO2 11/01/17 08:00 97.8 71 16 110/77 (88) 97 11/01/17 08:00 130/77 (94) 10/31/17 23:00 81 16 10/31/17 23:00 147/75 (99) 10/31/17 19:40 146/78 (100) 10/31/17 19:40 97.8 79 16 10/31/17 15:30 80 16 121/69 (86) 10/31/17 11:15 97.9 69 16 141/79 (99) 10/31/17 09:34 69 149/75 (99) Result Diagram: 11/01/17 0603 11/01/17 0603 Objective Remarks GENERAL: Well-nourished, well-developed patient. CARDIOVASCULAR: Regular rate and rhythm without murmurs, gallops, or rubs. RESPIRATORY: Breath sounds equal bilaterally. No accessory muscle use. ABDOMEN/GI: Abdomen soft, non-tender, bowel sounds present. Incision: clean dry and intact. Fundus: Firm, non-tender at umbilicus. GENITOURINARY: Light to moderate bleeding. EXTREMITIES: No cyanosis, non-tender, without signs of DVT. no clonus. Reflexes 2+. 2+ pitting edema Medications and IVs Current Medications Medications (Trade) Dose Ordered Sig/Chang Route Start Time Stop Time Status Last Admin (Xylocaine 1% Inj (50 ml)) 0.1 ml UNSCH X1 PRN I-DERMAL 10/29/17 12:45 11/01/17 12:44 Cefazolin Sodium/ Dextrose 50 ml @ 100 mls/hr GOLD MINER IV 10/31/17 01:30 11/04/17 01:29 10/31/17 00:30 (Bicitra Liq) 30 ml GOLD MINER PO 10/31/17 02:00 11/04/17 01:59 Oxytocin 500 ml @ 100 mls/hr UNSCH X1 PRN IV 10/31/17 11:45 11/01/17 11:44 (NS Flush) 2 ml BID IV FLUSH 10/31/17 09:00 10/31/17 09:00 (NS Flush) 2 ml UNSCH PRN IV FLUSH 10/31/17 01:45 (Mylicon Chew) 80 mg QID PRN PO 10/31/17 01:45 (Percocet 5-325 Mg) 1 tab Q4H PRN PO 10/31/17 01:45 10/31/17 23:01 (Percocet 5-325 Mg) 2 tab Q4H PRN PO 10/31/17 01:45 11/01/17 05:53 (Marsha-Colace) 2 tab Q12H PRN PO 10/31/17 01:45 (Ambien) 5 mg HS PRN PO 10/31/17 01:45 (M-M-R Ii Inj) 0.5 ml ONCE ONCE SQ 11/01/17 16:00 11/01/17 16:01 (Boostrix Inj) 0.5 ml ONCE ONCE IM 11/01/17 16:00 11/01/17 16:01 (Zofran Inj) 4 mg Q6H PRN IV PUSH 10/31/17 01:45 (Motrin) 800 mg Q8HR PRN PO 10/31/17 15:00 10/31/17 23:01 (Tylenol) 650 mg Q6H PRN PO 10/31/17 17:30 Assessment/Plan Problem List: (1) Pre-eclampsia ICD Codes: O14.90 - Unspecified pre-eclampsia, unspecified trimester Status: Acute Qualifiers: Qualified Codes: O14.93 - Unspecified pre-eclampsia, third trimester (2) Anemia ICD Codes: D64.9 - Anemia, unspecified Status: Chronic Qualifiers: Assessment and Plan 27 yo G1 s/p primary ltcd for failed iol and worsening pre-eclampsia 1) POD 1- cont routine supportive care 2) Pre-eclampsia w severe features- magnesium given intrapartum but stopped due to supratherapeutic levels. Creatinine and platelets in normal range now. Mild range bp. 3) Anemia- will start iron bid on discharge, stool softners to avoid constipation Discharge Planning day 2 or 3 Grace Tao MD Nov 01, 2017 09:26
[2017-11-01] MEDS: SODIUM CHLORIDE 0.9% FLUSH 10 ML FLUSH IV FLUSH SCH ×2 (09:42→21:18)
[2017-11-01] MEDS: IBUPROFEN 800 MG TAB PO PRN ×2 (09:42→22:38)
[2017-11-01] MEDS ORDERED: IBUP1TAB7 PO (15:18)
[2017-11-01] MEDS ORDERED: FERR325T18 PO (15:18)
[2017-11-01] MEDS ORDERED: OXYC1TAB63 PO (15:18)
[2017-11-01] MEDS ORDERED: PERI PO (15:18)
[2017-11-01] MEDS ORDERED: MEASLES, MUMPS, RUBELLA VACCINE 0.5 ML VIAL SQ ONE (16:00)
[2017-11-01] MEDS ORDERED: DIPHTH/TETANUS/ACEL PERTUSSIS (BOOSTER) 0.5 ML VIAL/PFS IM ONE (16:00)
[2017-11-01 20:00] VITALS: BP 130/79; PULSE 89; RESP 20; TEMP 98.6; O2SAT 98
[2017-11-01 23:19] VITALS: BP 141/79; PULSE 64; RESP 20; TEMP 98.9; O2SAT 98
[2017-11-02 04:00] VITALS: BP 145/74; PULSE 103; RESP 20; TEMP 98.1; O2SAT 98
[2017-11-02] MEDS: oxyCODONE/ACETAMINOPHEN 5 MG/325 MG TAB PO PRN ×2 (05:06→10:23)
[2017-11-02 07:38] VITALS: BP 148/86; PULSE 74; RESP 20; TEMP 98.6
--- NOTE | 2017-11-02 11:32 | HHI.DCPOC ---
Discharge Care Plan Diagnosis: (1) delivery delivered (2) Anemia (3) Pre-eclampsia Your Health Problems Are: Incisions/drains delivery Report Symptoms to Your Doctor -Temperature above 100.5 degrees -Redness, of incision or excessive or foul smelling drainage -Unusual pain or calf pain -Increased vaginal bleeding -Painful or difficulty urinating -Feelings of extreme sadness or anxiety after 2 weeks Goals to Promote Your Health * To prevent worsening of your condition and complications * To maintain your health at the optimal level Directions to Meet Your Goals Take your medications as prescribed Follow your dietary instruction Follow activity as directed Ensure plenty of rest for recovery Drink fluids for hydration Keep your appointments as scheduled Take your immunizations and boosters as scheduled If your symptoms worsen call your PCP, if no PCP go to Urgent Care Center or Emergency Room Smoking is Dangerous to Your Health. Avoid second hand smoke Call the 24-hour crisis hotline for domestic abuse at Grace Tao MD Nov 02, 2017 11:32
--- NOTE | 2017-11-02 11:33 | HHI.OB ---
Subjective Post Operative Day: 2 Remarks doing well. no marquez/ruq pain, blurry vision. ambulating. pain well controlled. + flatus Objective Vitals/I&O Vital Signs Date Time Temp Pulse Resp B/P (MAP) Pulse Ox O2 Delivery O2 Flow Rate FiO2 11/02/17 07:38 98.6 74 20 148/86 (106) 11/02/17 04:00 98.1 103 20 145/74 (97) 98 11/01/17 23:19 98.9 64 20 141/79 (99) 98 11/01/17 20:00 130/79 (96) 11/01/17 20:00 98.6 89 20 98 Result Diagram: 11/01/1760211/01/17 06 Objective Remarks GENERAL: Well-nourished, well-developed patient. CARDIOVASCULAR: Regular rate and rhythm without murmurs, gallops, or rubs. RESPIRATORY: Breath sounds equal bilaterally. No accessory muscle use. ABDOMEN/GI: Abdomen soft, non-tender, bowel sounds present. Incision: clean dry and intact. Fundus: Firm, non-tender at umbilicus. GENITOURINARY: Light to moderate bleeding. EXTREMITIES: No cyanosis, non-tender, without signs of DVT. no clonus. Reflexes 2+. 2+ pitting edema Medications and IVs Current Medications Medications (Trade) Dose Ordered Sig/Chang Route Start Time Stop Time Status Last Admin Cefazolin Sodium/ Dextrose 50 ml @ 100 mls/hr ELECTRIC POWER MACHINE OPERATOR IV 10/31/17 01:30 11/04/17 01:29 10/31/17 00:30 (Bicitra Liq) 30 ml ELECTRIC POWER MACHINE OPERATOR PO 10/31/17 02:00 11/04/17 01:59 (NS Flush) 2 ml BID IV FLUSH 10/31/17 09:00 11/01/17 09:42 (NS Flush) 2 ml UNSCH PRN IV FLUSH 10/31/17 01:45 (Mylicon Chew) 80 mg QID PRN PO 10/31/17 01:45 (Percocet 5-325 Mg) 1 tab Q4H PRN PO 10/31/17 01:45 11/01/17 09:42 (Percocet 5-325 Mg) 2 tab Q4H PRN PO 10/31/17 01:45 11/02/17 10:23 (Marsha-Colace) 2 tab Q12H PRN PO 10/31/17 01:45 (Ambien) 5 mg HS PRN PO 10/31/17 01:45 (Zofran Inj) 4 mg Q6H PRN IV PUSH 10/31/17 01:45 (Motrin) 800 mg Q8HR PRN PO 10/31/17 15:00 11/01/17 22:38 (Tylenol) 650 mg Q6H PRN PO 10/31/17 17:30 Assessment/Plan Problem List: (1) Pre-eclampsia ICD Codes: O14.90 - Unspecified pre-eclampsia, unspecified trimester Status: Acute Qualifiers: Qualified Codes: O14.93 - Unspecified pre-eclampsia, third trimester (2) Anemia ICD Codes: D64.9 - Anemia, unspecified Status: Chronic Qualifiers: Assessment and Plan 27 yo G1 s/p primary ltcd for failed iol and worsening pre-eclampsia 1) POD 2- cont routine supportive care 2) Pre-eclampsia w severe features- magnesium given intrapartum but stopped due to supratherapeutic levels. Creatinine and platelets in normal range now. Mild range bp. Will f/u in 1 wk for BP check 3) Anemia- will start iron bid on discharge, stool softners to avoid constipation Discharge Planning day 2 Grace Tao MD Nov 02, 2017 11:33
== END 2017-11-02 15:25 | disposition home or self-care (01) | DRG 766 ==
LOC: H2EA 11:42 → H1EA 10-31 10:52
PROVIDERS: ADMIT Obstetrics & Gynecology; ATTEND Obstetrics & Gynecology
PROC: 3E0P7VZ Introduction of Hormone into Female Reproductive, Via Natural or Artificial Opening (ICD-10-PCS; 2017-10-29)
PROC: 3E033VJ Introduction of Other Hormone into Peripheral Vein, Percutaneous Approach (ICD-10-PCS; 2017-10-29)
PROC: 10907ZC Drainage of Amniotic Fluid, Therapeutic from Products of Conception, Via Natural or Artificial Opening (ICD-10-PCS; 2017-10-30)
PROC: 10D00Z1 Extraction of Products of Conception, Low, Open Approach (ICD-10-PCS; principal; 2017-10-31)
DX: O14.14 Severe pre-eclampsia complicating childbirth (principal); R34 Anuria and oliguria; E28.2 Polycystic ovarian syndrome; O99.02 Anemia complicating childbirth; D64.9 Anemia, unspecified; O34.83 Maternal care for other abnormalities of pelvic organs, third trimester; O69.81X0 Labor and delivery complicated by cord around neck, without compression, not applicable or unspecified; E86.0 Dehydration; O61.9 Failed induction of labor, unspecified; Z37.0 Single live birth; Z3A.39 39 weeks gestation of pregnancy
CPT/HCPCS: 59025; 80048; 80053; 80307; 81001; 82570; 83735; 84156; 84550; 85025; 85027; 86900; 86901; 88307; J0131; J0456; J0690; J2274; J2405; J2590; J3010; J3475; J7040; J7050; J7120

== ENCOUNTER 2017-11-08 21:24 | Observation (INO) | payer MEDICAID ==
[2017-11-08] VITALS (9 sets, daily range): BP systolic 118–176; BP diastolic 60–93; PULSE 68–73; RESP 18; TEMP 98
[~2017-11-08] VITALS: Ht 165.1 cm; Wt 72.7 kg
[~2017-11-08 21:24] MED LIST: FERR325T18 PO; IBUP1TAB7 PO; OXYC1TAB63 PO; PERI PO
--- NOTE | 2017-11-08 22:00 | PD ---
HPI Chief Complaint RUQ pain Date Seen: Nov 08, 2017 Time Seen: 21:56 Travel History International Travel<30 Days: No Contact w/Intl Traveler<30Days: No Known Affected Area: No History of Present Illness HPI Pt is a 27y/o postop s/p 1'CS at 39.1wks on 10/31. She is a pt of Dr. Tao. Her /delivery was complicated by preE and she was on MagSO4. She reports that today she started having chest/RUQ pain. It hurts to take in a deep breath. She has appropriate VB and incisional pain. Denies RICKS or visual disturbances. Is pumping breast milk. Para: 1 : 1 History Past Medical History Medical History: Denies Significant Hx Obstetric History Obstetric History 1. c/s on 10/31, preE/magnesium Past Surgical History Narrative Surgical CSx1 Family History Family History: Negative Social History Alcohol Use: No Tobacco Use: No Substance Abuse: No Allergies-Medications (Allergen,Severity, Reaction): Coded Allergies: No Known Allergies (Unverified , 10/29/17) Home Meds Active Scripts Ferrous Sulfate (Ferrous Sulfate) 325 Mg (65 Mg Iron) Tablet, 325 MG PO BIDPC for Nutritional Supplement, #60 TAB 0 Refills Prov:Grace Tao MD 11/01/17 Sennosides-Docusate Sodium (Gnp Senna Plus 8.6-50 mg) 8.6 Mg-50 Mg Tab, 2 TAB PO Q12H Y for CONSTIPATION for 14 Days, #56 TAB Prov:Grace Tao MD 11/01/17 Oxycodone HCl/Acetaminophen (Oxycodone-Acetaminophen 5-325) 5 Mg-325 Mg Tablet, 1 TAB PO Q4H Y for PAIN SCALE 3 TO 5, #30 TAB Prov:Grace Tao MD 11/01/17 Ibuprofen (Ibuprofen) 800 Mg Tab, 800 MG PO Q8HR Y for cramping, #30 TAB Prov:Grace Tao MD 11/01/17 Review of Systems Except as stated in HPI: all other systems reviewed are Neg Physical Exam Vital Signs Date Time Temp Pulse Resp B/P (MAP) Pulse Ox O2 Delivery O2 Flow Rate FiO2 11/08/17 21:50 98.0 11/08/17 21:50 69 18 150/72 (98) Narrative General: well developed, well nourished, no acute distress HEENT: normocephalic atraumatic, extraocular movements intact, neck supple Abdomen: soft, +RUQ tenderness, incision C/D/I and appropriately tender Extremities: full range of motion Skin: normal coloration, no rashes, no suspicious skin lesions noted Neurologic: cranial nerves 2-12 grossly intact, normal muscle tone, normal gait Psychiatric: normal mood and affect, appropriate Data Data Vital Signs Reviewed: Yes Orders Orders Vital Signs (Adult) .ON ADMISSION (11/08/17 21:32) Cbc No Diff, Includes Plts (11/08/17 21:32) Comprehensive Metabolic Panel (11/08/17 21:32) Uric Acid (11/08/17 21:32) MDM Plan 27y/o s/p 1'CS on 10/31 complicated by preE with RUQ pain. -- STAT EKG demonstrates incomplete RBBB -- CBC and CMP normal -- BPs normal to mild range Dispo: Dr. No (electronic device repairer) present on floor and has assumed care of the pt. Diagnosis Diagnosis: Primary Impression: delivery delivered Additional Impressions: Pre-eclampsia RUQ pain Verito Frank MD Nov 08, 2017 22:00
[2017-11-08 22:27] LABS: HEMATOCRIT 27.3 % (35.0-46.0); HEMOGLOBIN 8.6 GM/DL (11.6-15.3); MEAN CELL VOLUME 78.8 FL (80.0-100.0); MEAN CORPUSCULAR HEMOGLOBIN 24.7 PG (27.0-34.0); MEAN CORPUSCULAR HGB CONC 31.4 % (32.0-36.0); PLATELET COUNT 348 TH/MM3 (150-450); RED BLOOD COUNT 3.46 MIL/MM3 (4.00-5.30); RED CELL DISTRIBUTION WIDTH 20.7 % (11.6-17.2); WHITE BLOOD COUNT 10.3 TH/MM3 (4.0-11.0)
[2017-11-08 22:40] LABS: ALBUMIN 2.8 GM/DL (3.4-5.0); ALT (GPT) 18 U/L (10-53); AST (GOT) 16 U/L (15-37); BLOOD UREA NITROGEN 12 MG/DL (7-18); CALCIUM 8.1 MG/DL (8.5-10.1); CHLORIDE 109 MEQ/L (98-107); CREATININE 0.51 MG/DL (0.50-1.00); GLOMERULAR FILTRATION RATE 145 ML/MIN (>89); GLUCOSE,RANDOM 95 MG/DL (74-106); SODIUM (NA) 143 MEQ/L (136-145)
[2017-11-08 22:43] LABS: ALKALINE PHOSPHATASE 201 U/L (45-117); TOTAL BILIRUBIN ADULT 0.2 MG/DL (0.2-1.0); TOTAL PROTEIN 6.9 GM/DL (6.4-8.2)
[2017-11-08] MEDS ORDERED: MEPERIDINE HCL 50 MG/ML VIAL ONE (23:58)
[2017-11-09] VITALS (37 sets, daily range): BP systolic 133–170; BP diastolic 64–92; PULSE 62–81; RESP 17–20; TEMP 97.9–98.2; O2SAT 95–97
[2017-11-09] MEDS ORDERED: MEPERIDINE HCL 50 MG/ML VIAL IV SCH
[2017-11-09] MEDS ORDERED: SINCALIDE 5 MCG/5 ML VIAL IV ONE (00:07)
[2017-11-09] MEDS: LACTATED RINGER'S 1000 ML INJ 1,000 ML IV SCH ×3 (00:15→20:15)
[2017-11-09] MEDS ORDERED: oxyCODONE/ACETAMINOPHEN 5 MG/325 MG TAB PO PRN ×2 (00:15)
[2017-11-09 00:17] LABS: AMYLASE 37 U/L (25-115); LIPASE 91 U/L (73-393)
[2017-11-09] MEDS ORDERED: DIATRIZOATE MEGLUM/DIATRIZOATE SOD 9 ML CUP PO ONE (00:45)
[2017-11-09] MEDS: IBUPROFEN 800 MG TAB PO SCH ×4 (01:49→18:43)
[2017-11-09 01:59] LABS: BILIRUBIN, URINE NEG (NEG); BLOOD, URINE MOD (NEG); GLUCOSE,URINE NEG (NEG); KETONE, URINE NEG (NEG); MUCUS URINE FEW /lpf (OCC); NITRITE,URINE NEG (NEG); SQUAMOUS EPITHELIAL CELL URINE <1 /hpf (0-5); URINE COLOR YELLOW (YELLW/STRAW); URINE LEUKOCYTE ESTERASE SMALL (NEG)
[2017-11-09] MEDS ORDERED: IOHEXOL 350 MG/ML 10 ML VIAL (for RAD DIAG) IVCONTRAST ONE (04:24)
--- NOTE | 2017-11-09 04:48 | RADRPT ---
EXAM DATE/TIME: 11/09/2017 04:23 [facility] COMPARISON: No previous studies available for comparison. INDICATIONS : Right upper quadrant pain eight days post partem. IV CONTRAST: 70 cc Omnipaque 350 (iohexol) IV ORAL CONTRAST: Prescribed oral contrast ingested. RADIATION DOSE: 10.01 CTDIvol (mGy) MEDICAL HISTORY : None SURGICAL HISTORY : None. ENCOUNTER: Initial ACUITY: 1 day PAIN SCALE: 6/10 LOCATION: Right upper quadrant abdomen TECHNIQUE: Volumetric scanning of the abdomen was performed. Using automated exposure control and adjustment of the mA and/or kV according to patient size, radiation dose was kept as low as reasonably achievable to obtain optimal diagnostic quality images. DICOM format image data is available electronically for review and comparison. FINDINGS: LOWER LUNGS: Small left pleural effusion. Inferior left lower lobe atelectasis. LIVER: Distended gallbladder. No calcified gallstones identified. No pericholecystic inflammatory change. Li bee homogeneous and within normal limits. SPLEEN: Normal size without lesion. PANCREAS: Within normal limits. KIDNEYS: Normal in size and shape. There is no mass, stone, or hydronephrosis. ADRENAL GLANDS: Within normal limits. AORTA/RETROPERITONEAL: There is no aneurysm or lymphadenopathy. BOWEL/MESENTERY: The stomach and visualized small and large bowel demonstrate no abnormality. ABDOMINAL WALL: Inflammatory changes are seen in the superficial soft tissues about the umbilicus. No organized absce ss identified. MUSCULOSKELETAL: Within normal limits for patient age. POST CONTRAST: No abnormal areas of enhancement are seen. Uterus is enlarged. Gas is identified within the fundal endometrial canal. CONCLUSION: 1. uterus with gas in the endometrial canal. This can be a normal finding in patients up t o 2 weeks following vaginal delivery. Endometrial gas can also be seen in cases of endometritis. Iban mmend correlation with clinical history and exam. 2. Small right pleural effusion. 3. Nonspecific gallbladder distention. No calcified gallstones or pericholecystic inflammatory change is identified. 4. Nonspecific superficial soft tissue periumbilical inflammatory changes. Tyron Anglin MD on November 09, 2017 at 4:36 Board Certified Radiologist. This report was verified electronically.
--- NOTE | 2017-11-09 05:43 | MH ---
cc: CLARENCE GÓMEZ R. JOHN MD DATE OF ADMISSION: 11/09/2017 ADMITTING DIAGNOSIS: HISTORY OF PRESENT ILLNESS This is a 27-year-old white female para 1-0-0-1 who is a week postop from a section for severe preeclampsia and failure to progress. She had a on 10/31 and her course was fairly uncomplicated. She went home and was doing fairly well until last night and began having a little bit of right shoulder and right chest pain. The pain came up from the diaphragm area and it was quite mild. This afternoon she had some Rayna's for lunch and she began having increasing pain in her right upper quadrant. At first her pain was mild but it kept increasing. It is aggravated by movement. There is no alleviating factors. The pain is sharp and stabing. There is no radiation at this time. She denies any trauma to this area. No problems with bowel function or bladder function. No history of any abnormal problems in the past. PAST MEDICAL HISTORY: Remarkable for anemia. PAST SURGICAL HISTORY: Remarkable for section a little over a week ago. PAST OBSTETRIC HISTORY She is para 1-0-0-1. She had severe preeclampsia. She was treated with magnesium. Her symptoms resolved . FAMILY HISTORY: Noncontributory. SOCIAL HISTORY She does not smoke, drink or take drugs. She is . ALLERGIES: NO KNOWN DRUG ALLERGIES. CURRENT MEDICATIONS: 1. Iron sulfate 325, one p.o. b.i.d. 2. vitamins one p.o. q day. 3. Colace one p.o. q daily. 4. Percocet 5/325, one to two q4h p.r.n. pain. REVIEW OF SYSTEMS: She denies any headaches or visual changes. No scotoma. She was having some chest pain earlier that radiated up from her liver to her right shoulder. No chest pressure. No shortness of breath. GI: No micturition problems or bowel problems. She does have the severe right upper quadrant pain which is described in the history of present illness. PHYSICAL EXAMINATION: Her physical exam reveals a well-developed, well-nourished female. She has slight distress. HEENT: Normocephalic, atraumatic. Neck: Supple. Trachea is in the midline. There is no thyromegaly or adenopathy. Chest: Clear to auscultation and percussion. There is no tenderness upon palpation around the chest wall. Heart: Regular rate and rhythm. Abdomen: The abdomen is soft. There is some bruising above the incision and it is slightly tender in this area. The right upper quadrant, however, is +3 tender. There is no rebound. I cannot feel the liver edge. Bowel sounds are normal. Extremities: Full range of motion. She has a little tiny bit of lower extremity edema. Psychiatric: Her mood and affect is appropriate. VITAL SIGNS: Temperature is 98, pulse is 69, respirations are 18, blood pressure is 150/72. LABORATORY WORK: Her liver functions are absolutely normal. Her calcium is slightly low at 8.1 but her albumin is low as well. Her white count is 10.3. Her hemoglobin is 8.6, hematocrit of 27.3. ASSESSMENT/PLAN 1. Right upper quadrant pain which is quite severe. The differential diagnosis could be that she has had some expansion of Cam's capsule and is having maybe some bleeding from the liver, versus gallbladder disease. Nobody in her family has gallbladder disease as far as she knows. Because her liver is so tender, I feel a stat CT scan is necessary at this time to rule out any bleeding or inside Cam's capsule which is a complication of preeclampsia. 2. Anemia. I will continue her iron in the post hospital period. In the meantime, we will try to control her pain. 3. Status post section for severe preeclampsia. She has already had magnesium and this may or may not be related to the preeclampsia. R. MD ZOYA Polo/MICHELLE /11:47 PM /4:21 AM
[2017-11-09] MEDS ORDERED: MEPERIDINE HCL 50 MG/ML VIAL IV PUSH ONE ×2 (09:45→16:30)
--- NOTE | 2017-11-09 09:45 | HHI.PR ---
Subjective Remarks HD #1 Still in quite a bit of pain the percocet takes the edge off. Pain is now at 7. Took percocet about 40 minutes ago. Objective Vital Signs Date Time Temp Pulse Resp B/P (MAP) Pulse Ox O2 Delivery O2 Flow Rate FiO2 11/09/17 09:03 72 159/84 (109) 11/09/17 08:42 18 11/09/17 08:42 70 152/88 (109) 11/09/17 08:42 98.0 11/09/17 08:00 19 11/09/17 05:35 68 97 11/09/17 05:30 67 96 11/09/17 05:25 68 96 11/09/17 05:20 96 11/09/17 05:20 63 11/09/17 05:15 63 11/09/17 05:15 96 11/09/17 05:10 96 11/09/17 05:10 62 11/09/17 05:05 96 11/09/17 05:05 62 11/09/17 05:00 96 11/09/17 05:00 62 11/09/17 04:55 62 97 11/09/17 04:50 64 97 11/09/17 04:45 62 97 11/09/17 04:40 97.9 64 95 11/09/17 04:40 20 11/09/17 04:38 65 158/84 (108) 11/09/17 01:50 98.1 11/09/17 01:45 70 145/92 (109) 11/09/17 00:31 69 158/78 (104) 11/09/17 00:01 62 170/64 (99) 11/08/17 23:46 68 167/83 (111) 11/08/17 23:31 69 176/93 (120) 11/08/17 23:15 68 155/77 (103) 11/08/17 23:01 68 130/60 (83) 11/08/17 22:45 72 144/79 (100) 11/08/17 22:30 72 118/65 (82) 11/08/17 22:16 73 133/71 (91) 11/08/17 21:58 69 153/79 (103) 11/08/17 21:50 98.0 11/08/17 21:50 69 18 150/72 (98) Result Diagram: 11/08/17220911/08/172209 Other Results WDWN female in mild distress Chest is clear CV RRR Abd is soft with normal BS. Slg tender around incision and some mild bruising. Over the gallbladder she is very tender. No rebound Ext no CCE Assessment and Plan Assessment and Plan 1. RUQ pain She is quite tender over the gallbladder. Labs are normal. Will have surgery see her this morning and get their opinion. For now will give demerol and increase the percocet. 2. High blood pressure Will try to control her pain and if it continues to be high I would add nifedipine to control this. Feel the BP is high partially due to the pain. 3. Severe anemia will address this later. She needs to be on FE. 4. S/P C/S for severe pre eclampsia. I was concerned about Bleeding under glissons capsule but the ct scan does not show this. I feel the pain may be from her gallbladder. Discussed Condition With pt and nurse Henrietta. Veena No MD Nov 09, 2017 09:45
[2017-11-09] MEDS ORDERED: SOD PHOSPHATE/SOD BIPHOSPHATE (ADULT) ENEMA 133ML RECTAL ONE (11:45)
[2017-11-09] MEDS ORDERED: BISACODYL 10 MG SUPP RECTAL ONE (12:30)
--- NOTE | 2017-11-09 12:37 | RADRPT ---
EXAM DATE/TIME: 11/09/2017 11:07 [facility] COMPARISON: No previous studies available for comparison. INDICATIONS : Right upper quadrant pain. MEDICAL HISTORY : Right upper quadrant pain. SURGICAL HISTORY : section. ENCOUNTER: Initial ACUITY: 2 days PAIN SCORE: 7/10 LOCATION: Right upper quadrant MEASUREMENTS: LIVER: 19.3 cm length COMMON DUCT: 3 mm RIGHT KIDNEY: 9.9 x 3.7 x 4.7 cm FINDINGS: LIVER: Mild hepatomegaly. Normal echotexture without focal lesion or ductal dilatation. Hepatopetal flows wi thin the portal vein. COMMON DUCT: No intraluminal mass or stone visualized. GALLBLADDER: Contains no stones, demonstrates no wall thickening or pericholecystic fluid. PANCREAS: The visualized portions are within normal limits. RIGHT KIDNEY: No evidence of hydronephrosis, stone, or mass. CONCLUSION: 1. No sonographic evidence of acute cholecystitis. 2. Mild hepatomegaly. 3. Small right pleural effusion. Joel Rebollar MD on November 09, 2017 at 12:33 Board Certified Radiologist. This report was verified electronically.
[2017-11-09] MEDS: KETOROLAC TROMETHAMINE 30 MG/ML (IVP) VIAL IV PUSH SCH ×2 (13:38→18:00)
--- NOTE | 2017-11-09 14:05 | EKG ---
Date Performed: 11/08/2017 Time Performed: 22:45:20 PTAGE: 27 years EKG: Sinus rhythm INCOMPLETE RIGHT BUNDLE BRANCH BLOCK BORDERLINE ECG NO PREVIOUS TRACING DOCTOR: Vamshi Plata Interpretating Date/Time 11/09/2017 14:04:37
--- NOTE | 2017-11-09 16:39 | RADRPT ---
EXAM DATE/TIME: 11/09/2017 14:23 [facility] COMPARISON: No previous studies available for comparison. INDICATIONS : Abdominal pain. DOSE: 4.1 mCi Tc99m Mebrofenin IV MEDICATION: 1.5 mcg Cholecystokinin IV; Indential symptomatic response. Cholecystokinin was administered by slow infusion over 8 minutes beginning at 60 minutes. MEDICAL HISTORY : None SURGICAL HISTORY : section. ENCOUNTER: Initial ACUITY: 1 day PAIN SCALE: 7/10 LOCATION: Right upper quadrant TECHNIQUE: Following the intravenous administration of radiotracer, dynamic sequential image were performed with continuous acquisition. Time-activity curves were generated. FINDINGS: HEPATIIC KINETICS: There is prompt uptake of radiotracer in the liver. No focal defects are seen. There is normal rate of washout from the hepatic parenchyma. BILIARY CLEARANCE: Activity is first seen in the extrahepatic biliary system at 25 minutes. There is normal excretion i nto the small bowel. GALLBLADDER: Activity is first seen in the gallbladder at 20 minutes. POST CHOLECYSTOKININ: After Cholecystokinin administration, there is prompt emptying of the gallbladder with a 20% % ejecti on fraction. Common bile duct kinetics are normal and there is no evidence of biliary obstruction. BILIARY ENTERIC REFLUX: None observed. CLINICAL: The patient was asymptomatic after Cholecystokinin administration. CONCLUSION: 1. No evidence of acute cholecystitis. Decreased ejection fraction from the gallbadder that can be se en with chronic cholecystitis. Carlyle Valera MD on November 09, 2017 at 16:36 Board Certified Radiologist. This report was verified electronically.
--- NOTE | 2017-11-09 17:20 | MB ---
cc: HERVE FRIEDMAN MD DATE OF CONSULTATION: 11/09/2017. REASON FOR CONSULTATION: Right upper quadrant abdominal pain, rule out cholecystitis. HISTORY OF PRESENT ILLNESS: The patient is a 27-year-old female who presents with acute onset of right upper quadrant abdominal pain. She had a on 10/31/2017, and was doing relatively well, was discharged home and noted to have increased pain in the right upper quadrant for last the 48 hours. She states the pain radiates into her back and her chest. She states the pain is an 8/10. She gets some improvement with IV pain medications to a 7/10. She says it is better with lying still and it is worse with movement. She denies any associated fevers. She does note some decreased p.o. intake and was also noted to have a bowel movement. She had CT findings of a distended gallbladder and concern to rule out acute cholecystitis. PAST MEDICAL HISTORY: Anemia. PAST SURGICAL HISTORY: over a week ago. FAMILY HISTORY: Denies diabetes or hypertension. MEDICATIONS: See the electronic medical record. ALLERGIES: NO KNOWN DRUG ALLERGIES. SOCIAL HISTORY: Denies smoking, EtOH or IV drug abuse. REVIEW OF SYSTEMS: GENERAL: Denies headaches or chills. HEAD, EYES, EARS, NOSE, THROAT: Denies eye pain, ear pain. NECK: Denies swelling or pain. LUNGS: Denies cough or wheeze. HEART: Denies palpitations. She complains of right-sided chest pain. ABDOMEN: Complains of abdominal pain. Denies nausea. : Denies dysuria, hematuria. ENDOCRINE: Denies polyuria or polydipsia. PSYCHIATRIC: Appropriate insight and appropriate judgment. PHYSICAL EXAMINATION: GENERAL: In no acute distress. VITAL SIGNS: Temperature 98, pulse 77, respirations 18, blood pressure 153/75, saturation 99% on room air. HEAD, EYES, EARS, NOSE, THROAT: Pupils equal, round and reactive. No scleral icterus. NECK: The neck is supple. Trachea is midline. LUNGS: Clear to auscultation bilaterally. HEART: S1 and S2. Regular rhythm. ABDOMEN: Abdomen soft. Positive tenderness to palpation right upper quadrant. Positive interval rebound right upper quadrant otherwise soft. Palpable uterus. Healing surgical scar. EXTREMITIES: Warm and well-perfused. NEUROLOGIC: GCS of 15. 5/5 motor all extremities. PSYCHIATRIC: Appropriate mood and sensorium. LABORATORY AND DIAGNOSTIC DATA: WBC 10.3, hemoglobin 8.6, hematocrit 27.3, platelets 348,000. Sodium 1.3 potassium 3.8, BUN 12, creatinine 0.5, bilirubin 0.2, AST 16, ALT 18, alkaline phosphatase 201, albumin 2.8, lipase 91. CT reviewed by myself showing endometrial findings along with nonspecific gallbladder distension. No stones noted on CT. No inflammatory change or wall thickening. ASSESSMENT: 27-year-old female presents with acute onset right upper quadrant pain, rule out acute cholecystitis. PLAN: After full clinical, radiologic and laboratory workup the patient with the above-named issues including pretty severe right upper quadrant pain recently delivery . At this point, my concern is for possible cholecystitis versus constipation versus other abdominal pain etiology. Would recommend consideration for ultrasound of the gallbladder to further delineate also further recommendation regarding a HIDA scan. If the HIDA scan is positive, will consider and proceed with laparoscopic cholecystectomy; if this is negative, we will again continue to discuss further diagnostic laparoscopy is necessary versus observation. Would recommend stool softeners, bowel regimen for possible constipated issues as well. We will continue to follow and await the results of the HIDA scan. Thank you for the consultation. MD LEONARD Amaya/RHONDA /4:28 PM /4:47 PM
--- NOTE | 2017-11-09 17:24 | HHI.PR ---
Subjective Remarks FOLLOW UP NOTE No pain with the HIDA scan. Pain is still severe. Had good BM but no resolution of the pain Objective Vital Signs Date Time Temp Pulse Resp B/P (MAP) Pulse Ox O2 Delivery O2 Flow Rate FiO2 11/09/17 17:00 98.2 11/09/17 16:46 73 11/09/17 16:46 158/74 (102) 11/09/17 16:44 81 11/09/17 16:38 18 11/09/17 13:32 79 139/86 (103) 11/09/17 13:00 18 11/09/17 12:32 98.0 11/09/17 12:05 77 153/75 (101) 11/09/17 09:35 19 11/09/17 09:03 72 159/84 (109) 11/09/17 08:42 18 11/09/17 08:42 70 152/88 (109) 11/09/17 08:42 98.0 11/09/17 08:00 19 11/09/17 05:35 68 97 11/09/17 05:30 67 96 11/09/17 05:25 68 96 11/09/17 05:20 96 11/09/17 05:20 63 11/09/17 05:15 63 11/09/17 05:15 96 11/09/17 05:10 96 11/09/17 05:10 62 11/09/17 05:05 96 11/09/17 05:05 62 11/09/17 05:00 96 11/09/17 05:00 62 11/09/17 04:55 62 97 11/09/17 04:50 64 97 11/09/17 04:45 62 97 11/09/17 04:40 97.9 64 95 11/09/17 04:40 20 11/09/17 04:38 65 158/84 (108) 11/09/17 01:50 98.1 11/09/17 01:45 70 145/92 (109) 11/09/17 00:31 69 158/78 (104) 11/09/17 00:01 62 170/64 (99) 11/08/17 23:46 68 167/83 (111) 11/08/17 23:31 69 176/93 (120) 11/08/17 23:15 68 155/77 (103) 11/08/17 23:01 68 130/60 (83) 11/08/17 22:45 72 144/79 (100) 11/08/17 22:30 72 118/65 (82) 11/08/17 22:16 73 133/71 (91) 11/08/17 21:58 69 153/79 (103) 11/08/17 21:50 98.0 11/08/17 21:50 69 18 150/72 (98) Result Diagram: 11/08/17 2210 11/08/17 2210 Other Results Abdomen soft, very tender over the gallbladder. Assessment and Plan Assessment and Plan 1. RUQ pain she has had U/S, and HIDA scan and both are normal. S/W the surgeon who felt we should follow this for now. I will change her meds to dilaudid as the percocet is not working very well and give IV demerol for the breakthru pain. I feel this is most likely gallbladder disease. Will feed her tonite and NPO after MN and repeat her labs. 2. Constipation she had good results with the supository and still has the pain. will start her on pericolace. Veena No MD Nov 09, 2017 17:24
[2017-11-09] MEDS ORDERED: MEPERIDINE HCL 25 MG/ML VIAL IV PUSH PRN (17:30)
[2017-11-09] MEDS ORDERED: ZOLPIDEM TARTRATE 5 MG TAB PO PRN (17:30)
[2017-11-09] MEDS: HYDROmorphone HCL 4 MG TAB PO PRN (21:21)
[2017-11-10] VITALS (12 sets, daily range): BP systolic 141–157; BP diastolic 76–90; PULSE 68–89; RESP 18–20; TEMP 97.6–98.7; O2SAT 97–100
[2017-11-10] MEDS: DOCUSATE SODIUM 50 MG/SENNA 8.6 MG TAB PO SCH ×3 (01:20→20:38)
[2017-11-10] MEDS: HYDROmorphone HCL 4 MG TAB PO PRN ×2 (03:59→20:38)
[2017-11-10] MEDS: KETOROLAC TROMETHAMINE 30 MG/ML (IVP) VIAL IV PUSH SCH ×4 (05:38→13:56)
[2017-11-10] MEDS: LACTATED RINGER'S 1000 ML INJ 1,000 ML IV SCH ×2 (06:15→18:00)
[2017-11-10 07:52] LABS: AUTOMATED NEUTROPHIL # 5.7 TH/MM3 (1.8-7.7); BASOPHIL # 0.1 TH/MM3 (0-0.2); BASOPHIL % 0.9 % (0.0-2.0); EOSINOPHIL # 0.1 TH/MM3 (0-0.4); EOSINOPHIL % 1.6 % (0.0-4.0); HEMATOCRIT 25.5 % (35.0-46.0); HEMOGLOBIN 8.2 GM/DL (11.6-15.3); LYMPH % 19.6 % (9.0-44.0); LYMPHOCYTE # 1.5 TH/MM3 (1.0-4.8); MEAN CELL VOLUME 78.9 FL (80.0-100.0); MEAN CORPUSCULAR HEMOGLOBIN 25.5 PG (27.0-34.0); MEAN CORPUSCULAR HGB CONC 32.2 % (32.0-36.0); MEAN PLATELET VOLUME 8.5 FL (7.0-11.0); MONO % 4.5 % (0.0-8.0); MONOCYTE # 0.3 TH/MM3 (0-0.9); NEUT % 73.4 % (16.0-70.0); PLATELET COUNT 303 TH/MM3 (150-450); RED BLOOD COUNT 3.22 MIL/MM3 (4.00-5.30); RED CELL DISTRIBUTION WIDTH 20.7 % (11.6-17.2); WHITE BLOOD COUNT 7.8 TH/MM3 (4.0-11.0)
[2017-11-10] MEDS: IBUPROFEN 800 MG TAB PO SCH ×2 (08:00)
[2017-11-10 08:18] LABS: ALBUMIN 2.4 GM/DL (3.4-5.0); DIRECT BILIRUBIN ADULT 0.1 MG/DL (0.0-0.2); INDIRECT BILIRUBIN 0.4 MG/DL (0.0-0.8); TOTAL BILIRUBIN ADULT 0.5 MG/DL (0.2-1.0); TOTAL PROTEIN 6.3 GM/DL (6.4-8.2)
--- NOTE | 2017-11-10 08:21 | HHI.OB ---
Subjective Post Operative Day: 12 Remarks ,severe RUQ pain, ? gall bladder disease, pain is worse Objective Vitals/I&O Vital Signs Date Time Temp Pulse Resp B/P (MAP) Pulse Ox O2 Delivery O2 Flow Rate FiO2 11/10/17 07:45 75 11/10/17 07:40 76 11/10/17 07:38 80 150/90 (110) 11/10/17 07:37 18 11/10/17 07:37 98.3 11/10/17 06:23 18 11/10/17 05:38 18 11/10/17 04:19 98.5 11/10/17 04:19 18 11/10/17 04:13 68 157/89 (111) 11/09/17 22:12 18 11/09/17 22:03 68 136/73 (94) 11/09/17 19:48 81 133/79 (97) 11/09/17 19:47 97.9 18 11/09/17 18:44 17 11/09/17 18:43 66 153/85 (107) 11/09/17 18:10 68 11/09/17 18:07 75 11/09/17 17:00 98.2 11/09/17 16:46 73 11/09/17 16:46 158/74 (102) 11/09/17 16:44 81 11/09/17 16:38 18 11/09/17 13:32 79 139/86 (103) 11/09/17 13:00 18 11/09/17 12:32 98.0 11/09/17 12:05 77 153/75 (101) 11/09/17 09:35 19 11/09/17 09:03 72 159/84 (109) 11/09/17 08:42 18 11/09/17 08:42 70 152/88 (109) 11/09/17 08:42 98.0 Result Diagram: 11/10/17 0730 11/08/170 Objective Remarks GENERAL: Well-nourished, well-developed patient. CARDIOVASCULAR: Regular rate and rhythm without murmurs, gallops, or rubs. RESPIRATORY: Breath sounds equal bilaterally. No accessory muscle use. ABDOMEN/GI: Abdomen soft, rebound,guarding,tender in RUQ, bowel sounds present. Incision: Clean, dry and intact. Fundus: Firm, non-tender at umbilicus. GENITOURINARY: Light to moderate bleeding. EXTREMITIES: No cyanosis or edema, non-tender, without signs of DVT. Medications and IVs Current Medications Medications (Trade) Dose Ordered Sig/Chang Route Start Time Stop Time Status Last Admin Lactated Ringer's 1,000 ml @ 100 mls/hr Q10H IV 11/09/17 00:15 11/09/17 20:15 (Motrin) 800 mg Q8H PO 11/09/17 00:00 11/09/17 18:43 (Toradol Inj) 15 mg Q6HR IV PUSH 11/09/17 12:00 11/10/17 05:38 (Marsha-Colace) 2 tab BID PO 11/09/17 21:00 11/10/17 01:20 (Dilaudid) 2 mg Q4H PRN PO 11/09/17 17:15 (Dilaudid) 4 mg Q4H PRN PO 11/09/17 17:15 11/10/17 03:59 (Demerol Inj) 25 mg Q2H PRN IV PUSH 11/09/17 17:30 11/10/17 01:19 (Ambien) 5 mg HS PRN PO 11/09/17 17:30 Assessment/Plan Assessment and Plan HD #3, No change in pain, ,RUQ, now on demerol 50 mg, IV. Plan keep NPO until disposition from general surgery Matthew Hou MD Nov 10, 2017 08:21
[2017-11-10] MEDS ORDERED: MEPERIDINE HCL 25 MG/ML VIAL IV PUSH PRN (09:30)
--- NOTE | 2017-11-10 10:25 | HHI.PR ---
Subjective Subjective Notes still with persistent severe ruq pain, no nausea Objective Vitals/I&O Vital Signs Date Time Temp Pulse Resp B/P (MAP) Pulse Ox O2 Delivery O2 Flow Rate FiO2 11/10/17 07:45 75 11/10/17 07:38 150/90 (110) 11/10/17 07:37 18 11/10/17 07:37 98.3 11/09/17 05:35 97 Labs Laboratory Tests Test 11/10/17 07:30 White Blood Count 7.8 Red Blood Count 3.22 Hemoglobin 8.2 Hematocrit 25.5 Mean Corpuscular Volume 78.9 Mean Corpuscular Hemoglobin 25.5 Mean Corpuscular Hemoglobin Concent 32.2 Red Cell Distribution Width 20.7 Platelet Count 303 Mean Platelet Volume 8.5 Neutrophils (%) (Auto) 73.4 Lymphocytes (%) (Auto) 19.6 Monocytes (%) (Auto) 4.5 Eosinophils (%) (Auto) 1.6 Basophils (%) (Auto) 0.9 Neutrophils # (Auto) 5.7 Lymphocytes # (Auto) 1.5 Monocytes # (Auto) 0.3 Eosinophils # (Auto) 0.1 Basophils # (Auto) 0.1 CBC Comment DIFF FINAL Differential Comment Total Bilirubin 0.5 Direct Bilirubin 0.1 Indirect Bilirubin 0.4 Aspartate Amino Transf (AST/SGOT) 62 Alanine Aminotransferase (ALT/SGPT) 51 Alkaline Phosphatase 674 Total Protein 6.3 Albumin 2.4 Abdomen: Other (soft +ttp RUQ) A/P Assessment and Plan ruq pain, hida shows biliary dyskinesia PLAN NPO Will plan for laparoscopic cholecystectomy, dx lap discussed with patient ivf pain control Sukumar Lezama MD Nov 10, 2017 10:24
[2017-11-10] MEDS ORDERED: GLYCOPYRROLATE 1 MG/5 ML SYRINGE IV PUSH ONE (12:00)
[2017-11-10] MEDS ORDERED: DEXAMETHASONE SOD PHOS 4 MG/ML VIAL IV ONE (12:00)
[2017-11-10] MEDS ORDERED: ROCURONIUM INJ 50 MG/5 ML VIAL IV ONE (12:00)
[2017-11-10] MEDS ORDERED: LIDOCAINE HCL 1% PF 5 ML SYRINGE OTHER ONE (12:00)
[2017-11-10] MEDS ORDERED: PROPOFOL 200 MG/20 ML AMP IV ONE (12:00)
[2017-11-10] MEDS ORDERED: NEOSTIGMINE 5 MG/5 ML SYRINGE IV PUSH ONE (12:00)
[2017-11-10] MEDS ORDERED: ONDANSETRON HCL 4 MG/2 ML VIAL IV PUSH ONE (12:00)
[2017-11-10] MEDS ORDERED: LACTATED RINGER'S 1000 ML INJ 1,000 ML IV ONE (12:00)
[2017-11-10] MEDS ORDERED: SUCCINYLCHOLINE CHLORIDE 200 MG/10 ML VIAL IV ONE (12:00)
[2017-11-10] MEDS ORDERED: BUPIVACAINE/EPINEPHRINE 0.25% PF 30 ML VIAL ONE (15:37)
[2017-11-10] MEDS ORDERED: ACETAMINOPHEN 1000 MG/100 ML 100 ML IV ONE (15:58)
[2017-11-10] MEDS ORDERED: ceFAZolin 2 GM PREMIX 50 ML ONE (16:26)
--- NOTE | 2017-11-10 17:21 | HHI.PR ---
Immediate Post Op Note Procedure Date: Nov 10, 2017 Pre Op Diagnosis: ruq pain, biliary dyskinesia Post Op Diagnosis: same, inflammatory adhesions Surgeon: Sukumar Lezama MD Inker Machine(s): see or sheet Procedure: lap nely, dx lap Findings: distended gallbladder, several inflammatory adhesions Complications: none Specimen(s) removed: gallbladder Estimated blood loss: 5cc Anesthesia: General Drains: None Patient to: PACU Patient Condition: Good Sukumar Lezama MD Nov 10, 2017 17:21
[2017-11-10] MEDS ORDERED: DO NOT ADM ANY ANTICOAGULANT DRUGS PRN (17:30)
[2017-11-10] MEDS ORDERED: MIDAZOLAM HCL 2 MG/2 ML VIAL ONE (17:39)
[2017-11-10] MEDS ORDERED: *morphine SULFATE 10 MG/ML PERIprocedure ONLY ONE (17:40)
[2017-11-10] MEDS ORDERED: *PROMETHAZINE 25 MG/ML VIAL PERIprocedural use ONLY ONE (17:43)
[2017-11-10] MEDS: metroNIDAZOLE 500 MG INJ 100 ML IV SCH (18:00)
[2017-11-11] MEDS: KETOROLAC TROMETHAMINE 30 MG/ML (IVP) VIAL IV PUSH SCH ×4 (00:22→18:15)
[2017-11-11 00:35] VITALS: BP 131/69; PULSE 81; RESP 20; TEMP 97.3; O2SAT 95
[2017-11-11] MEDS: IBUPROFEN 800 MG TAB PO SCH ×3 (00:45→16:16)
[2017-11-11] MEDS ORDERED: ceFAZolin 2 GM PREMIX 50 ML IV SCH ×2 (01:00→14:00)
[2017-11-11] MEDS: metroNIDAZOLE 500 MG INJ 100 ML IV SCH ×3 (02:41→16:15)
[2017-11-11] MEDS: HYDROmorphone HCL 2 MG TAB PO PRN (02:42)
[2017-11-11 04:00] VITALS: BP 135/67; PULSE 70; RESP 20; TEMP 98.2; O2SAT 95
[2017-11-11] MEDS: LACTATED RINGER'S 1000 ML INJ 1,000 ML IV SCH ×3 (05:32→22:15)
[2017-11-11 08:00] VITALS: BP 140/74; PULSE 69; RESP 16; TEMP 97.7; O2SAT 96
[2017-11-11] MEDS: DOCUSATE SODIUM 50 MG/SENNA 8.6 MG TAB PO SCH ×2 (08:08→22:27)
[2017-11-11] MEDS: HYDROmorphone HCL 4 MG TAB PO PRN ×3 (08:15→22:27)
[2017-11-11 09:04] VITALS: O2SAT 96
--- NOTE | 2017-11-11 10:10 | HHI.OB ---
Subjective Post Operative Day: 1 Remarks postop d 1 s/p lsc nely and jewel with Dr. Lezama. [place] well overnight but is now having ruq pain. She has not tried to eat breakfast. No nausea or vomiting. Objective Vitals/I&O Vital Signs Date Time Temp Pulse Resp B/P (MAP) Pulse Ox O2 Delivery O2 Flow Rate FiO2 11/11/17 09:04 96 11/11/17 08:00 97.7 69 16 140/74 (96) 96 11/11/17 06:19 21 11/11/17 04:00 98.2 70 20 135/67 (89) 95 11/11/17 00:35 97.3 81 20 131/69 (89) 95 11/10/17 20:58 97.6 84 20 141/79 (99) 97 11/10/17 19:15 97.8 70 16 128/67 (87) 95 Room Air 11/10/17 19:00 75 16 123/62 (82) 94 Room Air 11/10/17 18:45 82 16 120/68 (85) 94 Room Air 11/10/17 18:30 84 16 117/62 (80) 94 Room Air 11/10/17 18:15 88 15 125/66 (85) 93 Room Air 11/10/17 18:00 89 15 120/64 (82) 93 Room Air 11/10/17 17:45 98 15 121/60 (80) 92 Room Air 11/10/17 17:45 15 11/10/17 17:35 98.5 107 18 127/60 (82) 97 Nasal Cannula 2 11/10/17 15:09 98 11/10/17 15:07 100 11/10/17 15:04 98.2 89 155/78 (103) 11/10/17 15:03 18 11/10/17 11:00 85 18 143/76 (98) 11/10/17 11:00 98.7 Intake & Output 11/11/17 11/11/17 06:59 18:59 Intake Total 1780 ml 100 ml Output Total 800 ml Balance 980 ml 100 ml Intake Oral 480 ml IV Total 1300 ml 100 ml Output Urine Total 800 ml # Voids 0 Result Diagram: 11/10/17 0730 11/08/17 5650 Objective Remarks GENERAL: Well-nourished, well-developed patient. CARDIOVASCULAR: Regular rate and rhythm without murmurs, gallops, or rubs. RESPIRATORY: Breath sounds equal bilaterally. No accessory muscle use. ABDOMEN/GI: Abdomen soft, + rebound,tender in RUQ, bowel sounds present. Incision: lsc and pfan. Clean, dry and intact. Fundus: Firm, non-tender at umbilicus. GENITOURINARY: Light to moderate bleeding. EXTREMITIES: No cyanosis, tr edema, non-tender, without signs of DVT. Medications and IVs Current Medications Medications (Trade) Dose Ordered Sig/Chang Route Start Time Stop Time Status Last Admin Lactated Ringer's 1,000 ml @ 100 mls/hr Q10H IV 11/09/17 00:15 11/11/17 05:32 (Motrin) 800 mg Q8H PO 11/09/17 00:00 11/11/17 08:08 (Toradol Inj) 15 mg Q6HR IV PUSH 11/09/17 12:00 11/11/17 05:32 (Marsha-Colace) 2 tab BID PO 11/09/17 21:00 11/11/17 08:08 (Dilaudid) 2 mg Q4H PRN PO 11/09/17 17:15 11/11/17 02:42 (Dilaudid) 4 mg Q4H PRN PO 11/09/17 17:15 11/11/17 08:15 (Ambien) 5 mg HS PRN PO 11/09/17 17:30 (Demerol Inj) 50 mg Q2H PRN IV PUSH 11/10/17 09:30 11/10/17 09:31 Metronidazole 100 ml @ 100 mls/hr Q8H IV 11/10/17 18:00 11/11/17 17:59 11/11/17 08:08 Miscellaneous Information ALL NURSING DEPARTME... UNSCH PRN .XX 11/10/17 17:30 11/11/17 17:29 Assessment/Plan Assessment and Plan HD #4, POD 1 lsc nely and jewel. Discussed w Dr. Lezama,not candidate for discharge. She has recurrence of pain this am. Will continue abx, and pain medication. - pt pumping and dumping milk at present. Can resume saving milk, over 24 horus since iv contrast. CD incision appears well healed. Tao,Grace C MD Nov 11, 2017 10:10
[2017-11-11 12:00] VITALS: BP 137/86; PULSE 75; RESP 17; TEMP 96.9; O2SAT 97
[2017-11-11 16:00] VITALS: BP 140/78; PULSE 85; RESP 16; TEMP 98.1; O2SAT 94
[2017-11-12] VITALS: BP 154/76; PULSE 70; RESP 16; TEMP 96.9; O2SAT 98
[2017-11-12] MEDS: KETOROLAC TROMETHAMINE 30 MG/ML (IVP) VIAL IV PUSH SCH ×4 (00:30→16:12)
[2017-11-12] MEDS: IBUPROFEN 800 MG TAB PO SCH ×3 (00:30→16:10)
[2017-11-12] MEDS: metroNIDAZOLE 500 MG INJ 100 ML IV SCH ×2 (00:30→08:15)
[2017-11-12] MEDS: LACTATED RINGER'S 1000 ML INJ 1,000 ML IV SCH (05:33)
[2017-11-12 08:00] VITALS: BP 181/89; PULSE 69; RESP 18; TEMP 96.9; O2SAT 98
[2017-11-12] MEDS: DOCUSATE SODIUM 50 MG/SENNA 8.6 MG TAB PO SCH (08:14)
[2017-11-12] MEDS: HEPARIN SODIUM - SQ 10,000 UNITS/ML VIAL SQ SCH ×2 (08:15→14:00)
--- NOTE | 2017-11-12 09:11 | HHI.OB ---
Subjective Post Operative Day: 2 Remarks s/p laparoscopic cholecystectomy with general surgeon Dr. Lezama on 11/10/17; was readmitted in PP time frame for severe RUQ pain, found to have biliary dyskinesia, dilated gallbladder & several inflammatory lesions at laparoscopy feeling better this AM, eating, voiding, pain under control; no RICKS, no vision changes, no edema; BP has been elevated last 2 checks with 8am value severe 181/ 89 Objective Vitals/I&O Vital Signs Date Time Temp Pulse Resp B/P (MAP) Pulse Ox O2 Delivery O2 Flow Rate FiO2 11/12/17 08:00 96.9 69 18 181/89 (119) 98 11/12/17 00:00 96.9 70 16 154/76 (102) 98 11/11/17 16:00 98.1 85 16 140/78 (98) 94 11/11/17 12:00 96.9 75 17 137/86 (103) 97 Intake & Output 11/12/17 11/12/17 07:00 19:00 Intake Total 1340 ml Balance 1340 ml Intake Oral 240 ml IV Total 1100 ml # Voids 4 # Bowel Movements 0 Result Diagram: 11/10/17 0730 11/08/17 2210 Objective Remarks GENERAL: Well-nourished, well-developed patient. CARDIOVASCULAR: Regular rate and rhythm without murmurs, gallops, or rubs. RESPIRATORY: Breath sounds equal bilaterally. No accessory muscle use. ABDOMEN/GI: Abdomen soft, bowel sounds present. Incision: lsc x 4 intact with steri-strips in place and pfan. well healed. Clean, dry and intact. Fundus: Firm, non-tender at umbilicus. GENITOURINARY: Light bleeding. EXTREMITIES: No cyanosis, tr edema, non-tender, without signs of DVT. Medications and IVs Current Medications Medications (Trade) Dose Ordered Sig/Chang Route Start Time Stop Time Status Last Admin Lactated Ringer's 1,000 ml @ 100 mls/hr Q10H IV 11/09/17 00:15 11/12/17 05:33 (Motrin) 800 mg Q8H PO 11/09/17 00:00 11/12/17 08:15 (Toradol Inj) 15 mg Q6HR IV PUSH 11/09/17 12:00 11/12/17 05:37 (Marsha-Colace) 2 tab BID PO 11/09/17 21:00 11/12/17 08:14 (Dilaudid) 2 mg Q4H PRN PO 11/09/17 17:15 11/11/17 02:42 (Dilaudid) 4 mg Q4H PRN PO 11/09/17 17:15 11/11/17 22:27 (Ambien) 5 mg HS PRN PO 11/09/17 17:30 (Demerol Inj) 50 mg Q2H PRN IV PUSH 11/10/17 09:30 11/10/17 09:31 Cefazolin Sodium/ Dextrose 50 ml @ 100 mls/hr Q24H IV 11/11/17 14:00 11/11/17 14:48 Metronidazole 100 ml @ 100 mls/hr Q8H IV 11/11/17 16:00 11/12/17 08:15 (Heparin Inj) 5,000 units Q8HR SQ 11/12/17 06:15 11/12/17 08:15 Assessment/Plan Assessment and Plan HD #4, POD #2 s/p lsc nely and jewel. Dr. Lezama, surgeon, continues to follow as well - from OB perspective healing well and pain seems to be controlled this AM; BP elevated, will d/c IVF and recheck; if persistent elevation will start antihypertensive later today; no other symptoms at this time - await recommendations from Dr. Lezama re: antibiotics, when to discontinue, and if needs any po on discharge. - incisions healing well, d/w pt will reschedule appt w Dr. Tao from tomorrow to early next week in office, will likely need to see Dr. Lezama for postop care as well Dispo: not yet meeting criteria, needs clearance from general surgeon and also BP control; will re-evaluate later today Discharge Planning not meeting criteria Gretchen Benton MD Nov 12, 2017 09:11
[2017-11-12] MEDS ORDERED: AUGM875T3 PO (10:45)
[2017-11-12] MEDS ORDERED: AMOXICILLIN/CLAVULANATE K 875 MG TAB PO SCH (10:45)
--- NOTE | 2017-11-12 10:48 | HHI.PR ---
Subjective Subjective Notes Resting in bed Pain better today Objective Vitals/I&O Vital Signs Date Time Temp Pulse Resp B/P (MAP) Pulse Ox O2 Delivery O2 Flow Rate FiO2 11/12/17 08:00 96.9 69 18 181/89 (119) 98 11/11/17 06:19 21 11/10/17 19:15 Room Air 11/10/17 17:35 2 Cardiovascular: Regular Lungs: Clear Abdomen: Non-distended, Other (tender to palpation in RUQ; lap sites c/d/i; prior C section incision ) Extremities: No edema A/P Assessment and Plan 27 year old female POD2 lap nely; also s/p on 10/31 -Tolerating regular diet -Transitioned to Augmentin -OOB and mobilize -BP high today; stopped IVF -GS clear for DC -Follow up appt set for Nov 21 at 9:50AM -Rx for Augmentin 875 mg BID on chart Attending Statement patient seen at bedside pain improving htn this am d/c planning Attestation The exam, history, and the medical decision-making described in the above note were completed with the assistance of the mid-level provider. I reviewed and agree with the findings presented. I attest that I had a [id number] encounter with the patient on the same day, and personally performed and documented my assessment and findings in the medical record. Kallie Dalton Nov 12, 2017 10:48 Sukumar Lezama MD Nov 16, 2017 14:23
[2017-11-12 12:00] VITALS: BP 156/81; PULSE 71; RESP 17; TEMP 97.3; O2SAT 98
[2017-11-12] MEDS: HYDROmorphone HCL 2 MG TAB PO PRN (12:30)
[2017-11-12] MEDS ORDERED: LABETALOL HCL 200 MG TAB PO ONE (13:00)
--- NOTE | 2017-11-12 13:22 | MP ---
cc: HERVE LEZAMA MD DATE OF SURGERY 11/10/2017 PREOPERATIVE DIAGNOSIS Right upper quadrant abdominal pain, biliary dyskinesia. POSTOPERATIVE DIAGNOSIS Right upper quadrant abdominal pain, biliary dyskinesia, inflammatory adhesions. SURGEON Dr. Herve Lezama. 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 ANESTHESIA General endotracheal. IV FLUIDS See anesthesia sheet. PROCEDURE PERFORMED 1. Laparoscopic cholecystectomy. 2. Diagnostic laparoscopy. FINDINGS A distended gallbladder and several inflammatory adhesions to the right upper quadrant and several noted throughout the abdomen. COMPLICATIONS None. SPECIMEN Gallbladder. ESTIMATED BLOOD LOSS 5 cc. DRAINS None. INDICATION The patient is a 27-year-old female who presents with acute onset of right upper quadrant abdominal pain. The patient is approximately one week and developed within the last few days severe pain. She had further work-up questioning gallbladder etiology. She did have an ejection fraction of 20% consistent with biliary dyskinesia. Therefore decision was made for operative intervention including laparoscopic cholecystectomy and diagnostic laparoscopy. DETAILS OF PROCEDURE The patient was taken to the operating suite and placed in supine position. She was prepped and draped in the usual sterile fashion after induction of general endotracheal anesthesia. A brief timeout was done stating correct patient, procedure and surgical site, and all were in agreement with this. Attention was first directed to the umbilicus where a stab mayelin incision was made after local anesthetic was injected. A Veress needle was placed. A saline drop test confirmed intra-abdominal placement. A Visiport 5 mm was used to enter the abdomen safely. On insufflation there was no evidence of injury. Three other ports were placed, one epigastric 12 mm followed by two 5 mm right subcostal ports. There were noted to be several adhesions to the right upper quadrant with some scant purulence and inflammatory tissue with the omentum and mesentery. These adhesions were taken down and lysed. The gallbladder was identified and grasped at its fundus and retracted cephalad. The gallbladder infundibulum was grasped as well. [place] electro-dissection was done to achieve exposure of the cystic duct and cystic artery. This was done and noted to be the only structures going into the gallbladder. Endoshears were used to transect the cystic duct and cystic artery after two clips were placed proximal and one distal to the cystic duct and cystic artery. Bovie electrocautery was used to remove the gallbladder from the gallbladder fossa. The gallbladder was placed in an EndoCatch bag, removed from the abdomen and sent to pathology. Further exploration of the abdomen noted several other adhesions in the pelvis, infraumbilical and also expected intense adhesions where incision to the was noted. The ovaries were a little dilated but not pathologic. Further exploration noted no significant other abnormality. Irrigation was used for the gallbladder fossa. Hemostasis was obtained. The ports were removed. The pneumoperitoneum was removed. The epigastric port was closed with 0 Vicryl on a UR6 and 4-0 Monocryl subcuticular sutures on the incisions. Again, local anesthetic was injected. Steri-Strips and Mastisol was placed. The patient tolerated the procedure well. There was no intraoperative complication. All lap and instrument counts were correct at the end of the procedure. The patient was extubated and taken stable to PACU. MD LEONARD Amaya/ABIDA /10:12 AM /12:59 PM
[2017-11-12 16:00] VITALS: BP 134/62; PULSE 78; RESP 17; TEMP 97.4; O2SAT 98
[2017-11-12] MEDS ORDERED: LABE200T2 PO (17:03)
[2017-11-12] MEDS ORDERED: OXYC1TAB63 PO (17:03)
--- NOTE | 2017-11-12 17:09 | HHI.DS ---
Discharge Summary Admission Date Nov 09, 2017 at 00:06 Discharge Date: Nov 12, 2017 Admitting Diagnosis RUQ pain, severe; ; history of PreEclampsia; delivery, delivered (1) RUQ pain Diagnosis: Principal ICD Codes: R10.11 - Right upper quadrant pain Status: Acute (2) delivery delivered Diagnosis: Secondary ICD Codes: O82 - Encounter for delivery without indication (3) Pre-eclampsia Diagnosis: Secondary ICD Codes: O14.90 - Unspecified pre-eclampsia, unspecified trimester Status: Acute Procedures laparoscopic cholecystectomy with general surgeon Dr. Lezama Brief History 27 yo recently patient whose intrapartum course was complicated by PreEclampsia re-presented to the hospital for severe RUQ pain, was admitted and found to have biliary dyskinesia, general surgery consult ordered. CBC/BMP: 11/10/17 0730 11/08/17 2210 Significant Findings Laboratory Tests Test 11/10/17 07:30 Red Blood Count 3.22 MIL/MM3 (4.00-5.30) Hemoglobin 8.2 GM/DL (11.6-15.3) Hematocrit 25.5 % (35.0-46.0) Mean Corpuscular Volume 78.9 FL (80.0-100.0) Mean Corpuscular Hemoglobin 25.5 PG (27.0-34.0) Red Cell Distribution Width 20.7 % (11.6-17.2) Neutrophils (%) (Auto) 73.4 % (16.0-70.0) Aspartate Amino Transf (AST/SGOT) 62 U/L (15-37) Alkaline Phosphatase 674 U/L (45-117) Total Protein 6.3 GM/DL (6.4-8.2) Albumin 2.4 GM/DL (3.4-5.0) PE at Discharge A&O x 3 NAD CTA b/l no wheeze RRR incisions c/d/i w steri-strips in place for LSC incisions; pfannenstiel healing well no c/c/e x 4 abd soft NTND +BS Hospital Course Pt admitted for severe RUQ pain, biliary dyskinesia diagnosed and on 11/10 Dr. Lezama of general surgery performed LSC nely with lysis of adhesions/ inflammation in RUQ. Pt had issue with elevated BP postoperatively and was started on labetalol 200mg bid with good result, will send home on meds with office f/u in [address] Lezama recommends 5d of Augmentin outpt, Rx on chart, he will see pt in 10d for postop visit. Pt Condition on Discharge: Good Discharge Disposition: Discharge Home Discharge Instructions DIET: Follow Instructions for: Low Fat Diet Activities you can perform: Partial Weight Bearing, Shower Only-No Bath, Pelvic Rest Gretchen Benton MD Nov 12, 2017 17:09
== END 2017-11-12 19:11 | disposition home or self-care (01) ==
LOC: HOBED 21:24 → H2EA 11-09 00:06 → N07B 11-10 15:22
PROVIDERS: ADMIT Obstetrics & Gynecology; ATTEND Obstetrics & Gynecology
DX: O90.89 Other complications of the puerperium, not elsewhere classified (principal); R10.11 Right upper quadrant pain; O14.15 Severe pre-eclampsia, complicating the puerperium; O90.81 Anemia of the puerperium; D64.9 Anemia, unspecified; O26.63 Liver and biliary tract disorders in the puerperium; K82.8 Other specified diseases of gallbladder; K81.1 Chronic cholecystitis; O99.63 Diseases of the digestive system complicating the puerperium; K66.0 Peritoneal adhesions (postprocedural) (postinfection); J90 Pleural effusion, not elsewhere classified; R16.0 Hepatomegaly, not elsewhere classified; I45.10 Unspecified right bundle-branch block; K59.00 Constipation, unspecified
CPT/HCPCS: 00790; 47562; 74160; 76705; 78227; 80053; 80076; 81001; 82150; 83690; 84550; 85025; 85027; 86850; 86900; 86901; 88304; 93005; 96361; 96365; 96366; 96367; 96372; 96375; 96376; 99285; A9537; G0378; J0131; J0330; J0690; J1100; J1644; J1885; J2175; J2250; J2270; J2405; J2550; J2710; J2805; J3010; J7120; Q9963; Q9967